=== PATIENT | female | born 2000 | race Caucasian/White ===

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

== ENCOUNTER 2021-08-04 12:12 | Emergency (ER) | payer OTHER ==
--- NOTE | 2021-08-04 12:49 | ED ---
Abdominal Pain HPI - General Source: patient, family, RN notes reviewed Mode of arrival: ambulatory Limitations: no limitations - History of Present Illness MD Complaint: other (pelvic pain) Onset/Timin -: days(s) Location: LLQ, RLQ, suprapubic Quality: cramping <Georgette Dominguez - Last Filed: 08/04/21 16:28> <Eva Black - Last Filed: 08/05/21 21:55> - General Chief Complaint: Abdominal Pain Stated Complaint: Abd pain Time Seen by Provider: 08/04/21 12:20 - History of Present Illness Initial Comments: This is a 20-year-old female who presents to the emergency department for bilateral lower quadrant/pelvic pain. States that she is 2 days late on her period. The pain feels similar to a period cramp. Denies any fevers/chills, nausea, vomiting, or change in bowel habits. Denies being sexually active or having any concern for or sexually transmitted infections. She has not taken anything for the pain at this time. The pain does not radiate and she has not found anything to make the pain better or worse. (Georgette Dominguez) - Related Data Previous Rx's Medication Instructions Recorded Diclofenac Sodium 50 mg PO BID PRN #20 tab 08/04/21 Allergies Allergy/AdvReac Type Severity Reaction Status Date / Time No Known Allergies Allergy Verified 08/04/21 12:13 Review of Systems ROS Other: All systems not noted in ROS Statement are negative. Constitutional: Denies: fever, chills ENT: Denies: ear pain, throat pain Respiratory: Denies: cough, dyspnea Cardiovascular: Denies: chest pain, palpitations Gastrointestinal: Reports: abdominal pain. Denies: nausea, vomiting, diarrhea, constipation Genitourinary: Denies: urgency, dysuria, hematuria Skin: Denies: rash Neurological: Denies: headache <Georgette Dominguez - Last Filed: 08/04/21 16:28> ROS Other: All systems not noted in ROS Statement are negative. <Eva Black - Last Filed: 08/05/21 21:55> ROS Statement: Those systems with pertinent positive or pertinent negative responses have been documented in the HPI. Past Medical History Past Medical History: No Reported History History of Any Multi-Drug Resistant Organisms: None Reported Past Surgical History: No Surgical Hx Reported Past Psychological History: No Psychological Hx Reported Smoking Status: Never smoker Past Alcohol Use History: None Reported Past Drug Use History: None Reported <Georgette Dominguez - Last Filed: 08/04/21 16:28> General Exam Limitations: no limitations General appearance: alert, in no apparent distress Head exam: Present: atraumatic, normocephalic, normal inspection Respiratory exam: Present: normal lung sounds bilaterally. Absent: respiratory distress, wheezes, rales, rhonchi, stridor Cardiovascular Exam: Present: regular rate, normal rhythm, normal heart sounds. Absent: systolic murmur, diastolic murmur, rubs, gallop, clicks GI/Abdominal exam: Present: soft, tenderness (bilateral lower quadrants), normal bowel sounds. Absent: distended, guarding, rebound, rigid Back exam: Absent: CVA tenderness (R), CVA tenderness (L) Neurological exam: Present: alert, oriented X3, CN II-XII intact Psychiatric exam: Present: normal affect, normal mood Skin exam: Present: warm, dry, intact, normal color. Absent: rash <Georgette Dominguez - Last Filed: 08/04/21 16:28> Course Vital Signs 08/04/21 08/04/21 08/04/21 12:13 14:57 16:00 Temperature 98.2 F 98.2 F 98.0 F Pulse Rate 62 52 L 58 L Respiratory 18 18 20 Rate Blood Pressure 111/74 109/66 112/67 O2 Sat by Pulse 99 100 98 Oximetry Medical Decision Making - Lab Data Result diagrams: 08/04/21 13:09 08/04/21 13:09 - Radiology Data Radiology results: report reviewed, image reviewed <Georgette Dominguez - Last Filed: 08/04/21 16:28> - Lab Data Result diagrams: 08/04/21 13:09 08/04/21 13:09 <Eva Black - Last Filed: 08/05/21 21:55> - Medical Decision Making This is a 20-year-old female who presents to the emergency department for bilateral lower quadrant pain. Lab work was unremarkable and revealed no signs of infection. Urinalysis was negative as was patient's urine hCG. Pelvic ultrasound did not identify any abnormalities. Patient given IM Toradol with good relief. Symptoms likely related to premenstrual cramping or other etiology associated with her menses. Prescription for diclofenac sent to her pharmacy, advised that she avoid taking this with other anti-inflammatories. She can however take this with Tylenol. Also advised a hot pack for further relief. Return precautions reviewed in depth, the patient is instructed to return to the emergency department if symptoms worsen or do not improve. Patient verbalized understanding. This case was discussed in detail with the attending ED physician. Presentation, findings, and treatment plan discussed in detail as well. (Georgette Dominguez) I was available for consultation in the emergency department. The history and physical exam were done by the midlevel provider. I was consulted for this patients care. I reviewed the case with the midlevel provider and based on their presentation of the patient, I agree with the assessment, medical decision making and plan of care as documented. Chart was dictated using [employer] dictation software. Attempts were made to correct any dictation errors however some typographical errors may persist. (Eva Black) - Lab Data Lab Results 08/04/21 08/04/21 08/04/21 Range/Units 12:55 12:55 13:09 WBC 5.0 (4.0-11.0) k/uL RBC 4.70 (3.80-5.40) m/uL Hgb 14.8 (11.4-16.0) gm/dL Hct 44.0 (34.0-46.0) % MCV 93.6 (80.0-100.0) fL MCH 31.4 (25.0-35.0) pg MCHC 33.5 (31.0-37.0) g/dL RDW 13.7 (11.5-15.5) % Plt Count 279 (150-450) k/uL MPV 7.8 Neutrophils % 47 % Lymphocytes % 44 % Monocytes % 5 % Eosinophils % 2 % Basophils % 1 % Neutrophils # 2.4 (1.3-7.7) k/uL Lymphocytes # 2.2 (1.0-4.8) k/uL Monocytes # 0.2 (0-1.0) k/uL Eosinophils # 0.1 (0-0.7) k/uL Basophils # 0.0 (0-0.2) k/uL Sodium (137-145) mmol/L Potassium (3.5-5.1) mmol/L Chloride (98-107) mmol/L Carbon Dioxide (22-30) mmol/L Anion Gap mmol/L BUN (7-17) mg/dL Creatinine (0.52-1.04) mg/dL Est GFR (CKD-EPI)AfAm (>60 ml/min/1.73 sqM) Est GFR (CKD-EPI)NonAf (>60 ml/min/1.73 sqM) Glucose (74-99) mg/dL Calcium (8.4-10.2) mg/dL Total Bilirubin (0.2-1.3) mg/dL AST (14-36) U/L ALT (4-34) U/L Alkaline Phosphatase (38-126) U/L Total Protein (6.3-8.2) g/dL Albumin (3.5-5.0) g/dL Urine Color Light Yellow Urine Appearance Clear (Clear) Urine pH 6.5 (5.0-8.0) Ur Specific [place] 1.004 (1.001-1.035) Urine Protein Negative (Negative) Urine Glucose (UA) Negative (Negative) Urine Ketones Negative (Negative) Urine Blood Negative (Negative) Urine Nitrite Negative (Negative) Urine Bilirubin Negative (Negative) Urine Urobilinogen <2.0 (<2.0) mg/dL Ur Leukocyte Esterase Negative (Negative) Urine HCG, Qual Not Detected (Not Detectd) 08/04/21 Range/Units 13:09 WBC (4.0-11.0) k/uL RBC (3.80-5.40) m/uL Hgb (11.4-16.0) gm/dL Hct (34.0-46.0) % MCV (80.0-100.0) fL MCH (25.0-35.0) pg MCHC (31.0-37.0) g/dL RDW (11.5-15.5) % Plt Count (150-450) k/uL MPV Neutrophils % % Lymphocytes % % Monocytes % % Eosinophils % % Basophils % % Neutrophils # (1.3-7.7) k/uL Lymphocytes # (1.0-4.8) k/uL Monocytes # (0-1.0) k/uL Eosinophils # (0-0.7) k/uL Basophils # (0-0.2) k/uL Sodium 136 L (137-145) mmol/L Potassium 3.7 (3.5-5.1) mmol/L Chloride 104 (98-107) mmol/L Carbon Dioxide 22 (22-30) mmol/L Anion Gap 10 mmol/L BUN 6 L (7-17) mg/dL Creatinine 0.48 L (0.52-1.04) mg/dL Est GFR (CKD-EPI)AfAm >90 (>60 ml/min/1.73 sqM) Est GFR (CKD-EPI)NonAf >90 (>60 ml/min/1.73 sqM) Glucose 82 (74-99) mg/dL Calcium 9.5 (8.4-10.2) mg/dL Total Bilirubin 0.9 (0.2-1.3) mg/dL AST 22 (14-36) U/L ALT 10 (4-34) U/L Alkaline Phosphatase 48 (38-126) U/L Total Protein 8.2 (6.3-8.2) g/dL Albumin 5.1 H (3.5-5.0) g/dL Urine Color Urine Appearance (Clear) Urine pH (5.0-8.0) Ur Specific [place] (1.001-1.035) Urine Protein (Negative) Urine Glucose (UA) (Negative) Urine Ketones (Negative) Urine Blood (Negative) Urine Nitrite (Negative) Urine Bilirubin (Negative) Urine Urobilinogen (<2.0) mg/dL Ur Leukocyte Esterase (Negative) Urine HCG, Qual (Not Detectd) Disposition Is patient prescribed a controlled substance at d/c from ED?: No <Georgette Dominguez - Last Filed: 08/04/21 16:28> <Eva Black - Last Filed: 08/05/21 21:55> Clinical Impression: Bilateral lower abdominal cramping Disposition: HOME SELF-CARE Instructions (If sedation given, give patient instructions): Abdominal Pain (ED) Additional Instructions: Return to the emergency department if your symptoms worsen, including but not limited to, worsening pain, fever/chills, or the development of nausea/vomiting. Prescription for diclofenac sent to the pharmacy. Do not take this with any other anti-inflammatory medications, such as ibuprofen. You can however take this with Tylenol. Follow-up with your primary care provider in 1 to 2 days. Prescriptions: Diclofenac Sodium 50 mg PO BID PRN #20 tab PRN Reason: Pain Referrals: Lauren Tavera MD [Primary Care Provider] - 1-2 days
[2021-08-04 13:03] LABS: Appearance,Urine Clear (Clear); Bilirubin,Urine Negative (Negative); Blood,Urine Negative (Negative); Color,Urine Light Yellow; Glucose,Urine (UA) Negative (Negative); Ketones,Urine Negative (Negative); Leukocyte Esterase,Urine Negative (Negative); Nitrite,Urine Negative (Negative); PH, Urine 6.5 (5.0-8.0); Protein,Urine Negative (Negative); Specific Gravity,Urine 1.004 (1.001-1.035); Urobilinogen,Urine <2.0 mg/dL (<2.0)
[2021-08-04 13:30] LABS: ALT 10 U/L (4-34); AST 22 U/L (14-36); African American GFR (CKD) >90 (>60 ml/min/1.73 sqM); Albumin 5.1 g/dL (3.5-5.0); Alkaline Phosphatase 48 U/L (38-126); Anion Gap 10 mmol/L; Blood Urea Nitrogen 6 mg/dL (7-17); Calcium 9.5 mg/dL (8.4-10.2); Carbon Dioxide 22 mmol/L (22-30); Chloride 104 mmol/L (98-107); Glucose 82 mg/dL (74-99); Non-African American GFR(CKD) >90 (>60 ml/min/1.73 sqM); Potassium 3.7 mmol/L (3.5-5.1); Sodium 136 mmol/L (137-145); Total Bilirubin 0.9 mg/dL (0.2-1.3); Total Protein 8.2 g/dL (6.3-8.2)
[2021-08-04 14:01] LABS: Basophils % (A) 1 %; Eosinophils # (A) 0.1 k/uL (0-0.7); Eosinophils % (A) 2 %; HGB 14.8 gm/dL (11.4-16.0); Lymphocytes # (A) 2.2 k/uL (1.0-4.8); Lymphocytes % (A) 44 %; MCH 31.4 pg (25.0-35.0); MCHC 33.5 g/dL (31.0-37.0); MCV 93.6 fL (80.0-100.0); Mean Platelet Volume 7.8; Monocytes # (A) 0.2 k/uL (0-1.0); Monocytes % (A) 5 %; Neutrophils # (A) 2.4 k/uL (1.3-7.7); Neutrophils % (A) 47 %; Platelet Count 279 k/uL (150-450); RDW 13.7 % (11.5-15.5)
--- NOTE | 2021-08-04 14:04 | US ---
EXAMINATION TYPE: US pelvic complete DATE OF EXAM: 08/04/2021 COMPARISON: NONE CLINICAL HISTORY: Lower quadrant/pelvic pain. Pelvic pain TECHNIQUE: . Transabdominal sonographic images of the pelvis were acquired. Date of LMP: 07/06/2021 EXAM MEASUREMENTS: Uterus: 6.0 x 3.3 x 3.9 cm Endometrial Stripe: 0.8 cm Right Ovary: 2.2 x 1.5 x 1.7 cm Left Ovary: 2.5 x 2.0 x 1.9 cm 1. Uterus: anteverted 2. Endometrium: wnl 3. Right Ovary: wnl 4. Left Ovary: wnl Spectral, color and waveform doppler imaging shows good arterial flow within the ovaries, good veno us flow within the right ovary, unable to obtain venous flow within the left ovary. 5. Bilateral Adnexa: wnl 6. Posterior cul-de-sac: wnl IMPRESSION: 1. No acute ultrasound abnormality of the pelvis
[2021-08-04] MEDS ORDERED: KETOROLAC 15 MG/ML 1 ML VIAL IVP STA (14:23)
[2021-08-04 16:00] VITALS: BP 112/67; PULSE 58; RESP 20; TEMP 98
== END 2021-08-04 15:59 | disposition home or self-care (01) ==
LOC: EC 12:12
DX: R10.31 Right lower quadrant pain (principal); R10.32 Left lower quadrant pain
CPT/HCPCS: 99284; 96374; 36415; 80053; 85025; 81003; 81025; 76856; J1885

== ENCOUNTER 2022-11-04 21:04 | Emergency (ER) | payer OTHER ==
--- NOTE | 2022-11-04 21:30 | XR ---
EXAMINATION TYPE: XR chest 2V DATE OF EXAM: 11/04/2022 COMPARISON: 11/20/2019 HISTORY: Chest pain TECHNIQUE: Frontal and lateral views of the chest are obtained. FINDINGS: There is no focal air space opacity. No evidence for pneumothorax. No pleural effusion. The cardiac silhouette size is within normal limits. The osseous structures are grossly intact. IMPRESSION: 1. No acute cardiopulmonary process.
[2022-11-04] MEDS ORDERED: methylPREDNISolone SOD SUCCI 125 MG/2 ML VIAL IM ONE (21:47)
[2022-11-04] MEDS ORDERED: IPRATROPIUM-ALBUTEROL 3 ML NEB INHALATION STA (21:47)
[2022-11-04 22:50] VITALS: PULSE 76
--- NOTE | 2022-11-04 22:54 | ED ---
General Adult HPI - General Chief complaint: Shortness of Breath Stated complaint: sob Time Seen by Provider: 11/04/22 21:38 Source: patient Mode of arrival: ambulatory Limitations: no limitations - History of Present Illness Initial comments: Patient is 22-year-old female presents to emergency department for shortness of breath. It started yesterday when patient was outside. Patient reports mild shortness of breath and dry cough. States she has history of COPD she did 2 albuterol nebulizer treatments with little relief. She states her chest is t ight but not painful. No leg pain or swelling. She denies fever, chills, nausea, vomiting. Patient is a non smoker. - Related Data Previous Rx's Medication Instructions Recorded Diclofenac Sodium 50 mg PO BID PRN #20 tab 08/04/21 predniSONE 50 mg PO DAILY #5 tab 11/04/22 Allergies Allergy/AdvReac Type Severity Reaction Status Date / Time No Known Allergies Allergy Verified 08/04/21 12:13 Review of Systems ROS Statement: Those systems with pertinent positive or pertinent negative responses have been documented in the HPI. ROS Other: All systems not noted in ROS Statement are negative. Past Medical History Past Medical History: COPD History of Any Multi-Drug Resistant Organisms: None Reported Past Surgical History: No Surgical Hx Reported Past Psychological History: No Psychological Hx Reported Smoking Status: Vaper Past Alcohol Use History: None Reported Past Drug Use History: None Reported General Exam Limitations: no limitations General appearance: alert, in no apparent distress Head exam: Present: atraumatic, normocephalic, normal inspection ENT exam: Present: normal oropharynx Neck exam: Present: normal inspection, full ROM. Absent: lymphadenopathy Respiratory exam: Present: normal lung sounds bilaterally, wheezes (Minimal wheezing upper lung finch). Absent: respiratory distress, rales, rhonchi, stridor, chest wall tenderness, accessory muscle use, decreased breath sounds, prolonged expiratory Cardiovascular Exam: Present: regular rate, normal rhythm, normal heart sounds. Absent: systolic murmur, diastolic murmur, rubs, gallop, clicks Neurological exam: Present: alert, oriented X3, CN II-XII intact Psychiatric exam: Present: normal affect, normal mood Skin exam: Present: warm, dry, intact, normal color. Absent: rash Course Vital Signs 11/04/22 11/04/22 11/04/22 21:15 22:21 22:37 Temperature 98.4 F Pulse Rate 73 72 Respiratory 20 18 Rate Blood Pressure 117/74 O2 Sat by Pulse 99 Oximetry 11/04/22 11/04/22 22:49 23:37 Temperature 98.0 F Pulse Rate 76 76 Respiratory 20 Rate Blood Pressure 116/72 O2 Sat by Pulse 93 L Oximetry Medical Decision Making - Medical Decision Making Was pt. sent in by a medical professional or institution (, PA, SPORTS MEDICINE MASSEUR, urgent care, hospital, or [facility]...) When possible be specific @ -No Did you speak to anyone other than the patient for history (EMS, parent, family, police, friend...)? What history was obtained from this source @ -No Did you review nursing and triage notes (agree or disagree)? Why? @ -I reviewed and agree with nursing and triage notes Were old charts reviewed (outside hosp., previous admission, EMS record, old EKG, old radiological studies, urgent care reports/EKG's, [facility] records)? Report findings @ -No old charts were reviewed Differential Diagnosis (chest pain, altered mental status, abdominal pain women, abdominal pain men, vaginal bleeding, weakness, fever, dyspnea, syncope, headache, dizziness, GI bleed, back pain, seizure, CVA, palpatations, mental health)? @ Differential Dyspnea: Coronary syndrome, arrhythmia, tamponade, asthma, COPD, pulmonary embolism, pneumonia, pneumothorax, pulmonary effusion, anaphylaxis, diabetic ketoacidosis, flailed chest, pulmonary contusion, diaphragmatic rupture, anemia, neurom uscular, this is not meant to be an all-inclusive list. EKG interpreted by me (3pts min.). @ -None X-rays interpreted by me (1pt min.). @ -No acute cardiopulmonary process CT interpreted by me (1pt min.). @ -None done U/S interpreted by me (1pt. min.). @ -None done What testing was considered but not performed or refused? (CT, X-rays, U/S, labs)? Why? @ -None What meds were considered but not given or refused? Why? @ -None Did you discuss the management of the patient with other professionals (professionals i.e. , PA, SPORTS MEDICINE MASSEUR, lab, RT, psych nurse, social work administrator, meal room hand, teacher, tourist information officer, catalytic case operator)? Give summary @ -No Was smoking cessation discussed for >3mins.? @ -No Was critical care preformed (if so, how long)? @ -No Were there social determinants of health that impacted care today? How? (Homelessness, low income, unemployed, alcoholism, drug addiction, transportation, low edu. Level, literacy, decrease access to med. care, assisted, rehab)? @ -No Was there de-escalation of care discussed even if they declined (Discuss DNR or withdrawal of care, Hospice)? DNR status @ -No What co-morbidities impacted this encounter? (DM, HTN, Smoking, COPD, CAD, Cancer, CVA, ARF, Chemo, Hep., AIDS, mental health diagnosis, sleep apnea, morbid obesity)? @ -None Was patient admitted / discharged? Hospital course, mention meds given and route, prescriptions, significant lab abnormalities, going to OR and other pertinent info. @ -Patient presented with shortness of breath. She is well-appearing resting comfortably no evidence respiratory distress. No hypoxia. There is minimal wheezing of the upper lung finch. Chest x-ray interpreted by myself no acute cardiopulmonary process. Patient given steroids and DuoNeb treatment with improvement. Patient is eager to go home her lung sounds have improved. She will be discharged symptomatic management. She is discharged in stable condition. Undiagnosed new problem with uncertain prognosis? @ -No Drug Therapy requiring intensive monitoring for toxicity (Heparin, Nitro, Insulin, Cardizem)? @ -No Were any procedures done? @ -No Diagnosis/symptom? @ -dyspnea Acute, or Chronic, or Acute on Chronic? @ -Acute Uncomplicated (without systemic symptoms) or Complicated (systemic symptoms)? @ -Uncomplicated Side effects of treatment? @ -No Exacerbation, Progression, or Severe Exacerbation? @ -No Poses a threat to life or bodily function? How? (Chest pain, [place], [place], pneumonia, PE, COPD, DKA, ARF, appy, cholecystitis, CVA, Diverticulitis, Homicidal, Suicidal, threat to staff... and all critical care pts) @ -No Dr. Roper is my attending - Lab Data Lab Results 11/04/22 Range/Units 21:52 Influenza Type A (PCR) Not Detected (Not Detectd) Influenza Type B (PCR) Not Detected (Not Detectd) RSV (PCR) Not Detected (Not Detectd) SARS-CoV-2 (PCR) Not Detected (Not Detectd) Disposition Clinical Impression: Dyspnea Disposition: HOME SELF-CARE Instructions (If sedation given, give patient instructions): Asthma (ED) Additional Instructions: Take medication as directed. Continue breathing treatments. Please follow-up with your primary care provider in 1-2 days. Return to the emergency department if you experience new, concerning, or worsening symptoms. Prescriptions: predniSONE 50 mg PO DAILY #5 tab Is patient prescribed a controlled substance at d/c from ED?: No Referrals: Lucho Mendez MD [Primary Care Provider] - 1-2 days
[2022-11-04 23:38] VITALS: BP 116/72; RESP 20; TEMP 98
== END 2022-11-04 23:38 | disposition home or self-care (01) ==
LOC: EC 21:04
DX: R06.00 Dyspnea, unspecified (principal); J44.9 Chronic obstructive pulmonary disease, unspecified; F17.290 Nicotine dependence, other tobacco product, uncomplicated; Z20.822 Contact with and (suspected) exposure to COVID-19
CPT/HCPCS: 87636; 71046; 99285; 96372; J2930

== ENCOUNTER 2022-11-22 08:16 | Emergency (ER) | payer OTHER ==
--- NOTE | 2022-11-22 08:39 | ED ---
General Adult HPI - General Chief complaint: Abdominal Pain Stated complaint: Abd Pain, 6weeks Time Seen by Provider: 11/22/22 08:18 Source: patient Mode of arrival: ambulatory Limitations: no limitations - History of Present Illness Initial comments: Dictation was produced using [employer] dictation software. please excuse any grammatical, word or spelling errors. Chief Complaint: 22-year-old female presents with vaginal spotting. She is allegedly 6 weeks History of Present Illness: Patient 22-year-old female she is accompanied by her fianc. She is relatively 6 weeks based on last menstrual cycle. St ates that today she's been having cramping in spotty bleeding. States that her cramping has been ongoing since this morning. Denies having had an the past. Patient has no other complaints. The ROS documented in this emergency department record has been reviewed and confirmed by me. Those systems with pertinent positive or negative responses have been documented in the HPI. All other systems are other negative and/or noncontributory. - Related Data Previous Rx's Medication Instructions Recorded Diclofenac Sodium 50 mg PO BID PRN #20 tab 08/04/21 predniSONE 50 mg PO DAILY #5 tab 11/04/22 Allergies Allergy/AdvReac Type Severity Reaction Status Date / Time No Known Allergies Allergy Verified 11/22/22 08:28 Review of Systems ROS Statement: Those systems with pertinent positive or pertinent negative responses have been documented in the HPI. ROS Other: All systems not noted in ROS Statement are negative. Past Medical History Past Medical History: COPD History of Any Multi-Drug Resistant Organisms: None Reported Past Surgical History: No Surgical Hx Reported Past Psychological History: No Psychological Hx Reported Smoking Status: Vaper Past Alcohol Use History: None Reported Past Drug Use History: None Reported General Exam - General Exam Comments Initial Comments: PHYSICAL EXAM: General Impression: Alert and oriented x3, not in acute distress HEENT: Normocephalic atraumatic, extra-ocular movements intact, pupils equal and reactive to light bilaterally, mucous membranes moist. Cardiovascular: Heart regular rate and rhythm Chest: Able to complete full sentences, no retractions, no tachypnea Abdomen: abdomen soft, positive tenderness to palpation, non-distended, no organomegaly Musculoskeletal: Pulses present and equal in all extremities, no peripheral edema Motor: no focal deficits noted Neurological: CN II-XII grossly intact, no focal motor or sensory deficits noted Skin: Intact with no visualized rashes Psych: Normal affect and mood Limitations: no limitations Course Vital Signs 11/22/22 08:26 Temperature 98.7 F Pulse Rate 82 Respiratory 18 Rate Blood Pressure 102/68 O2 Sat by Pulse 100 Oximetry Medical Decision Making - Medical Decision Making Was pt. sent in by a medical professional or institution (, PA, REEL SYSTEM OPERATOR, urgent care, hospital, or correction...) When possible be specific @ -No Did you speak to anyone other than the patient for history (EMS, parent, family, police, friend...)? What history was obtained from this source @ -No Did you review nursing and triage notes (agree or disagree)? Why? @ -I reviewed and agree with nursing and triage notes Were old charts reviewed (outside hosp., previous admission, EMS record, old EKG, old radiological studies, urgent care reports/EKG's, correction records)? Report findings @ -No old charts were reviewed Differential Diagnosis (chest pain, altered mental status, abdominal pain women, abdominal pain men, vaginal bleeding, musculoskeletal, weakness, fever, dyspnea, syncope, headache, dizziness, GI bleed, back pain, seizure, CVA, palpatations, mental health)? @ -Differential Abdominal Pain Women: Appendicitis, Cholecystitis, diverticulosis, ischemic bowel, pancreatitis, hepatitis, UTI, gastroenteritis, AAA, incarcerated hernia, bowel obstruction, constipation, inflammatory bowel, hepatitis, peptic ulcer disease, splenic infarction, perforated viscus, vulvitis, ovarian torsion, PID, kidney stone, pl acenta abruption, this is not meant to be an all-inclusive list EKG interpreted by me (3pts min.). @ -None done X-rays interpreted by me (1pt min.). @ -None done CT interpreted by me (1pt min.). @ -None done U/S interpreted by me (1pt. min.). @ -Intrauterine What testing was considered but not performed or refused? (CT, X-rays, U/S, labs)? Why? @ -None What meds were considered but not given or refused? Why? @ -None Did you discuss the management of the patient with other professionals (professionals i.e. , JANAE, REEL SYSTEM OPERATOR, lab, RT, psych nurse, foster care social worker, manager education, teacher, facility security officer, field nurse case manager)? Give summary @ -No Was smoking cessation discussed for >3mins.? @ -No Was critical care preformed (if so, how long)? @ -No Were there social determinants of health that impacted care today? How? (Homelessness, low income, unemployed, alcoholism, drug addiction, transportation, low edu. Level, literacy, decrease access to med. care, shelter, rehab)? @ -No Was there de-escalation of care discussed even if they declined (Discuss DNR or withdrawal of care, Hospice)? DNR status @ -No What co-morbidities impacted this encounter? (DM, HTN, Smoking, COPD, CAD, Cancer, CVA, ARF, Chemo, Hep., AIDS, mental health diagnosis, sleep apnea, morbid obesity)? @ -None Was patient admitted / discharged? Hospital course, mention meds given and route, prescriptions, significant lab abnormalities, going to OR and other pertinent info. @ -2-year-old female presents to emergency by with vaginal bleeding and . Vital signs are stable. Laboratory evaluation obtained. CBC metabolic panel unremarkable. Urinalysis negative. HCG Quant is 64,000. Ultrasound shows viable with small subchorionic hemorrhage. Likely implantation bleeding. She is notified of these results. She does not have established follow-up with [facility] yet. She does take vitamins. Return precautions discussed. Patient be discharged Undiagnosed new problem with uncertain prognosis? @ -No Drug Therapy requiring intensive monitoring for toxicity (Heparin, Nitro, Insulin, Cardizem)? @ -No Were any procedures done? @ -No Diagnosis/symptom? Acute, or Chronic, or Acute on Chronic? Uncomplicated (without systemic symptoms) or Complicated (systemic symptoms)? @ -Vaginal bleeding in . Side effects of treatment? @ -No Exacerbation, Progression, or Severe Exacerbation? @ -No Poses a threat to life or bodily function? How? (Chest pain, [place], [place], pneumonia, PE, COPD, DKA, ARF, appy, cholecystitis, CVA, Diverticulitis, Homicidal, Suicidal, threat to staff... and all critical care pts) @ -yes - Lab Data Result diagrams: 11/22/22 08:46 11/22/22 08:46 Lab Results 11/22/22 11/22/22 11/22/22 Range/Units 08:46 08:46 08:46 WBC 7.3 (3.8-10.6) k/uL RBC 4.24 (3.80-5.40) m/uL Hgb 13.0 (11.4-16.0) gm/dL Hct 38.8 (34.0-46.0) % MCV 91.5 (80.0-100.0) fL MCH 30.6 (25.0-35.0) pg MCHC 33.4 (31.0-37.0) g/dL RDW 13.1 (11.5-15.5) % Plt Count 222 (150-450) k/uL MPV 7.6 Neutrophils % 73 % Lymphocytes % 19 % Monocytes % 5 % Eosinophils % 1 % Basophils % 0 % Neutrophils # 5.3 (1.3-7.7) k/uL Lymphocytes # 1.4 (1.0-4.8) k/uL Monocytes # 0.4 (0-1.0) k/uL Eosinophils # 0.1 (0-0.7) k/uL Basophils # 0.0 (0-0.2) k/uL PT 9.8 (9.0-12.0) sec INR 0.9 (<1.2) APTT 22.3 (22.0-30.0) sec Sodium (137-145) mmol/L Potassium (3.5-5.1) mmol/L Chloride (98-107) mmol/L Carbon Dioxide (22-30) mmol/L Anion Gap mmol/L BUN (7-17) mg/dL Creatinine (0.52-1.04) mg/dL Est GFR (CKD-EPI)AfAm (>60 ml/min/1.73 sqM) Est GFR (CKD-EPI)NonAf (>60 ml/min/1.73 sqM) Glucose (74-99) mg/dL Calcium (8.4-10.2) mg/dL HCG, Quant mIU/mL Urine Color Colorless Urine Appearance Clear (Clear) Urine pH 6.5 (5.0-8.0) Ur Specific [place] 1.001 (1.001-1.035) Urine Protein Negative (Negative) Urine Glucose (UA) Negative (Negative) Urine Ketones Negative (Negative) Urine Blood Negative (Negative) Urine Nitrite Negative (Negative) Urine Bilirubin Negative (Negative) Urine Urobilinogen <2.0 (<2.0) mg/dL Ur Leukocyte Esterase Negative (Negative) Blood Type Blood Type Confirm Blood Type Recheck Bld Type Recheck Status Antibody Screen Spec Expiration Date 11/22/22 11/22/22 11/22/22 Range/Units 08:46 08:46 08:47 WBC (3.8-10.6) k/uL RBC (3.80-5.40) m/uL Hgb (11.4-16.0) gm/dL Hct (34.0-46.0) % MCV (80.0-100.0) fL MCH (25.0-35.0) pg MCHC (31.0-37.0) g/dL RDW (11.5-15.5) % Plt Count (150-450) k/uL MPV Neutrophils % % Lymphocytes % % Monocytes % % Eosinophils % % Basophils % % Neutrophils # (1.3-7.7) k/uL Lymphocytes # (1.0-4.8) k/uL Monocytes # (0-1.0) k/uL Eosinophils # (0-0.7) k/uL Basophils # (0-0.2) k/uL PT (9.0-12.0) sec INR (<1.2) APTT (22.0-30.0) sec Sodium 136 L (137-145) mmol/L Potassium 4.4 (3.5-5.1) mmol/L Chloride 105 (98-107) mmol/L Carbon Dioxide 23 (22-30) mmol/L Anion Gap 8 mmol/L BUN 6 L (7-17) mg/dL Creatinine 0.47 L (0.52-1.04) mg/dL Est GFR (CKD-EPI)AfAm >90 (>60 ml/min/1.73 sqM) Est GFR (CKD-EPI)NonAf >90 (>60 ml/min/1.73 sqM) Glucose 87 (74-99) mg/dL Calcium 8.9 (8.4-10.2) mg/dL HCG, Quant 92755.4 mIU/mL Urine Color Urine Appearance (Clear) Urine pH (5.0-8.0) Ur Specific [place] (1.001-1.035) Urine Protein (Negative) Urine Glucose (UA) (Negative) Urine Ketones (Negative) Urine Blood (Negative) Urine Nitrite (Negative) Urine Bilirubin (Negative) Urine Urobilinogen (<2.0) mg/dL Ur Leukocyte Esterase (Negative) Blood Type A Negative Blood Type Confirm A Negative Blood Type Recheck No Previous Record Bld Type Recheck Status CABO Indicated Antibody Screen NEGATIVE Spec Expiration Date 11/25/20222345 Disposition Clinical Impression: Vaginal bleeding during Disposition: HOME SELF-CARE Condition: Good Instructions (If sedation given, give patient instructions): (ED) Is patient prescribed a controlled substance at d/c from ED?: No Referrals: Pranav Mccarty MD [STAFF PHYSICIAN] - 1-2 days Time of Disposition: 11:09
[2022-11-22 08:55] LABS: Appearance,Urine Clear (Clear); Basophils % (A) 0 %; Bilirubin,Urine Negative (Negative); Blood,Urine Negative (Negative); Color,Urine Colorless; Eosinophils # (A) 0.1 k/uL (0-0.7); Eosinophils % (A) 1 %; Glucose,Urine (UA) Negative (Negative); HCT 38.8 % (34.0-46.0); Ketones,Urine Negative (Negative); Leukocyte Esterase,Urine Negative (Negative); Lymphocytes # (A) 1.4 k/uL (1.0-4.8); Lymphocytes % (A) 19 %; MCH 30.6 pg (25.0-35.0); MCHC 33.4 g/dL (31.0-37.0); MCV 91.5 fL (80.0-100.0); Mean Platelet Volume 7.6; Monocytes # (A) 0.4 k/uL (0-1.0); Monocytes % (A) 5 %; Neutrophils # (A) 5.3 k/uL (1.3-7.7); Neutrophils % (A) 73 %; Nitrite,Urine Negative (Negative); PH, Urine 6.5 (5.0-8.0); Platelet Count 222 k/uL (150-450); Protein,Urine Negative (Negative); RBC 4.24 m/uL (3.80-5.40); RDW 13.1 % (11.5-15.5); Specific Gravity,Urine 1.001 (1.001-1.035); Urobilinogen,Urine <2.0 mg/dL (<2.0); WBC 7.3 k/uL (3.8-10.6)
[2022-11-22 09:18] LABS: INR 0.9 (<1.2); Partial Thromboplastin Time 22.3 sec (22.0-30.0); Prothrombin Time 9.8 sec (9.0-12.0)
[2022-11-22 09:20] LABS: African American GFR (CKD) >90 (>60 ml/min/1.73 sqM); Anion Gap 8 mmol/L; Blood Urea Nitrogen 6 mg/dL (7-17); Calcium 8.9 mg/dL (8.4-10.2); Carbon Dioxide 23 mmol/L (22-30); Chloride 105 mmol/L (98-107); Glucose 87 mg/dL (74-99); Non-African American GFR(CKD) >90 (>60 ml/min/1.73 sqM); Potassium 4.4 mmol/L (3.5-5.1); Sodium 136 mmol/L (137-145)
--- NOTE | 2022-11-22 10:02 | US ---
EXAMINATION TYPE: Transabdominal DATE OF EXAM: 11/22/2022 9:29 AM COMPARISON: NONE for this CLINICAL INDICATION: Female, 22 years old with history of pelvic pain; Pain. . EXAM PERFORMED: Transvaginal (TV) and Transabdominal (TA) EXAM MEASUREMENTS: GESTATIONAL AGE / DATING Physician Established: Not yet established Dates by LMP: (6 weeks/0 days) EDC: 07/18/2023 Dates by First Scan: This is first scan Dates by Current Scan for: (6 weeks/4 days) EDC: 07/14/2023 MATERNAL ANATOMY Uterus: 8.1 x 5.0 x 4.6 cm Right Ovary: 3.6 x 1.4 x 1.4 cm Left Ovary: Enlarged- 4.6 x 3.4 3.1 cm. Area of mixed echogenicity with internal septations seen: 2.5 x 2.3 x 2.2 cm could represent corpus luteum versus sequela of prior hemorrhagic cyst. Arterial and venous waveforms seen within enlarged ovary. Post CDS / Adnexa: Fluid seen in CDS Presence of free fluid: Fluid seen in CDS Presence of corpus luteal cyst: Possible in left ovary versus other etiology. Presence of subchorionic bleed: Complex area seen inferior to gestational sac: 1.0 x 1.1 x 0.4 cm. GESTATION / SURVEY CRL: 0.74 cm. (6 weeks/4 days) Yolk Sac (normal less than 6mm): 2.8 mm Heart Rate: 122 bpm Rhythm: Normal IUP: Viable IUP Date of LMP: 10/11/2022 Beta HcG (if available): Not available IMPRESSION: 1. Single live intrauterine gestation with ultrasound age 6 weeks 4 days. 2. Small subchorionic hemorrhage.
[2022-11-22 10:11] LABS: HCG,Quantitative Serum 64204.4 mIU/mL
[2022-11-22] MEDS ORDERED: Rhogam IMMUNE GLOBULIN 1,500 UNIT/1 ML IM ONE (11:03)
[2022-11-22 11:52] VITALS: BP 107/65; PULSE 63; RESP 16; TEMP 98.8
== END 2022-11-22 11:48 | disposition home or self-care (01) ==
LOC: EC 08:16
DX: O20.8 Other hemorrhage in early pregnancy (principal); O99.511 Diseases of the respiratory system complicating pregnancy, first trimester; J44.9 Chronic obstructive pulmonary disease, unspecified; O99.331 Smoking (tobacco) complicating pregnancy, first trimester; F17.290 Nicotine dependence, other tobacco product, uncomplicated; Z3A.01 Less than 8 weeks gestation of pregnancy
CPT/HCPCS: 36415; 86900; 86901; 80048; 85025; 85610; 85730; 86850; 81003; 84702; 76801; 76817; 99284; 96372; J2790

== ENCOUNTER 2022-12-19 09:21 | Emergency (ER) | payer OTHER ==
[2022-12-19 09:25] VITALS: RESP 18; TEMP 98.1
[2022-12-19 10:27] LABS: Basophils % (A) 1 %; Eosinophils # (A) 0.2 k/uL (0-0.7); Eosinophils % (A) 3 %; HCT 33.9 % (34.0-46.0); HGB 12.1 gm/dL (11.4-16.0); Lymphocytes # (A) 1.4 k/uL (1.0-4.8); Lymphocytes % (A) 27 %; MCH 31.8 pg (25.0-35.0); MCHC 35.8 g/dL (31.0-37.0); MCV 88.9 fL (80.0-100.0); Mean Platelet Volume 7.3; Monocytes # (A) 0.2 k/uL (0-1.0); Monocytes % (A) 4 %; Neutrophils # (A) 3.4 k/uL (1.3-7.7); Neutrophils % (A) 64 %; Platelet Count 203 k/uL (150-450); RBC 3.81 m/uL (3.80-5.40); RDW 13.1 % (11.5-15.5); WBC 5.4 k/uL (3.8-10.6)
[2022-12-19 10:42] LABS: Amorphous Sediment,Urine Moderate /hpf; Appearance,Urine Turbid (Clear); Bilirubin,Urine Negative (Negative); Blood,Urine Negative (Negative); Color,Urine Light Yellow; Glucose,Urine (UA) Negative (Negative); Ketones,Urine Negative (Negative); Leukocyte Esterase,Urine Negative (Negative); Nitrite,Urine Negative (Negative); Protein,Urine Negative (Negative); RBC,Urine 1 /hpf (0-5); Specific Gravity,Urine 1.012 (1.001-1.035); Squamous Epithelial Cell,Urine 1 /hpf (0-4); Urobilinogen,Urine <2.0 mg/dL (<2.0); WBC,Urine 4 /hpf (0-5)
[2022-12-19 10:43] LABS: ALT 10 U/L (4-34); AST 19 U/L (14-36); African American GFR (CKD) >90 (>60 ml/min/1.73 sqM); Alkaline Phosphatase 37 U/L (38-126); Anion Gap 9 mmol/L; Blood Urea Nitrogen 5 mg/dL (7-17); Calcium 8.9 mg/dL (8.4-10.2); Carbon Dioxide 21 mmol/L (22-30); Chloride 105 mmol/L (98-107); Glucose 81 mg/dL (74-99); Non-African American GFR(CKD) >90 (>60 ml/min/1.73 sqM); Potassium 4.5 mmol/L (3.5-5.1); Sodium 135 mmol/L (137-145); Total Bilirubin 0.5 mg/dL (0.2-1.3); Total Protein 6.2 g/dL (6.3-8.2)
--- NOTE | 2022-12-19 11:01 | US ---
EXAMINATION TYPE: Transabdominal DATE OF EXAM: 12/19/2022 10:39 AM COMPARISON: NONE CLINICAL INDICATION: Female, 22 years old with history of pain; cramping today, EXAM PERFORMED: OBTA EXAM MEASUREMENTS: GESTATIONAL AGE / DATING Physician Established: ( 9 weeks/6 days) EDC: 07/18/2023 Dates by LMP: (9 weeks/6 days) EDC: 07/18/2023 Dates by First Scan: (10 weeks/3 days) EDC: 07/14/2023 Dates by Current Scan for: (10 weeks/6 days) EDC: 07/11/2023 MATERNAL ANATOMY Uterus: 9.3 x 6.7 x 7.2cm Right Ovary: not seen due to bowel gas and enlarging UT Left Ovary: 4.3 x 3.4 x 2.8cm Post CDS / Adnexa: wnl Presence of free fluid: no Presence of corpus luteal cyst: yes, left ovary = 2.0 x 2.1 x 1.8cm Presence of subchorionic bleed: no GESTATION / SURVEY CRL: 3.9cm (10 weeks/6 days) MSD: wnl Yolk Sac (normal less than 6mm): 0.4cm Heart Rate: 167 bpm Rhythm: Normal IUP: Viable IUP Nuchal Translucency 10-14wks (normal less than 3mm): 0.2cm Age Appropriate Anatomy Cord Insertion: Visualized Limbs: Visualized Calvarium: Visualized Date of LMP: 10/11/2022 Beta HcG (if available): pending IMPRESSION: Single viable intrauterine noted.
--- NOTE | 2022-12-19 11:29 | ED ---
Abdominal Pain HPI - General Chief Complaint: Abdominal Pain Stated Complaint: 9 wks preg, bleeding/cramping Time Seen by Provider: 12/19/22 09:30 Source: patient Mode of arrival: ambulatory Limitations: no limitations - History of Present Illness Initial Comments: 22-year-old female who is approximately 9 weeks who presents to the emergency department reporting lower abdominal cramping and vaginal bleeding. Patient was seen in the emergency department on November 22 for similar complaints. She was diagnosed with subchorionic hemorrhage. Follows with Dr. Turcios. States that her bleeding had stopped. This morning the patient awoke and had lower abdominal cramping with some bleeding. States it's only visible when she wipes. Admits bright pink in color. Denies dysuria, hematuria or difficulty voiding. No diarrhea, constitutional, black or bloody stools. No fevers. Did not take anything for the pain before coming in. No other alleviating, precipitating or modifying factors - Related Data Previous Rx's Medication Instructions Recorded Diclofenac Sodium 50 mg PO BID PRN #20 tab 08/04/21 predniSONE 50 mg PO DAILY #5 tab 11/04/22 Allergies Allergy/AdvReac Type Severity Reaction Status Date / Time No Known Allergies Allergy Verified 12/19/22 09:25 Review of Systems ROS Statement: Those systems with pertinent positive or pertinent negative responses have been documented in the HPI. ROS Other: All systems not noted in ROS Statement are negative. Past Medical History Past Medical History: Asthma History of Any Multi-Drug Resistant Organisms: None Reported Past Surgical History: No Surgical Hx Reported Past Psychological History: Anxiety Smoking Status: Vaper Past Alcohol Use History: None Reported Past Drug Use History: None Reported General Exam Limitations: no limitations General appearance: alert, in no apparent distress Head exam: Present: atraumatic, normocephalic, normal inspection Eye exam: Present: normal appearance, PERRL, EOMI. Absent: scleral icterus, conjunctival injection, periorbital swelling ENT exam: Present: normal exam, mucous membranes moist Neck exam: Present: normal inspection. Absent: tenderness, meningismus, lymphadenopathy Respiratory exam: Present: normal lung sounds bilaterally. Absent: respiratory distress, wheezes, rales, rhonchi, stridor Cardiovascular Exam: Present: regular rate, normal rhythm, normal heart sounds. Absent: systolic murmur, diastolic murmur, rubs, gallop, clicks GI/Abdominal exam: Present: soft, normal bowel sounds. Absent: distended, tenderness, guarding, rebound, rigid Extremities exam: Present: normal inspection, full ROM, normal capillary refill. Absent: tenderness, pedal edema, joint swelling, calf tenderness Back exam: Present: normal inspection Neurological exam: Present: alert, oriented X3, CN II-XII intact Psychiatric exam: Present: normal affect, normal mood Skin exam: Present: warm, dry, intact, normal color. Absent: rash Course Vital Signs 12/19/22 12/19/22 09:23 11:50 Temperature 98.1 F Pulse Rate 80 65 Respiratory 18 18 Rate Blood Pressure 101/71 99/66 O2 Sat by Pulse 100 97 Oximetry Medical Decision Making - Medical Decision Making Was pt. sent in by a medical professional or institution (, PA, MORNING NANNY, urgent care, hospital, or care home...) When possible be specific @ -Dr. Turcios's office recommended that the patient come in Did you speak to anyone other than the patient for history (EMS, parent, family, police, friend...)? What history was obtained from this source @ -No Did you review nursing and triage notes (agree or disagree)? Why? @ -I reviewed and agree with nursing and triage notes Were old charts reviewed (outside hosp., previous admission, EMS record, old EKG, old radiological studies, urgent care reports/EKG's, care home records)? Report findings @ -I reviewed the patient's ED visit and ultrasound from November 22 Differential Diagnosis (chest pain, altered mental status, abdominal pain women, abdominal pain men, vaginal bleeding, weakness, fever, dyspnea, syncope, headache, dizziness, GI bleed, back pain, seizure, CVA, palpatations, mental health, musculoskeletal)? @ -Differential Vaginal Bleeding: Spontaneous , threatened , molar , ectopic , bloody show, incompetent cervix, abruptioplacenta, placenta previa, uterine rupture, dysfunctional uterine bleeding, hemorrhage, uterine fibroids, this is not meant to be an all-inclusive list. EKG interpreted by me (3pts min.). @ -Not conducted X-rays interpreted by me (1pt min.). @ -None done CT interpreted by me (1pt min.). @ -None done U/S interpreted by me (1pt. min.). @ -Yes and demonstrates an intrauterine which is viable What testing was considered but not performed or refused? (CT, X-rays, U/S, labs)? Why? @ -None What meds were considered but not given or refused? Why? @ -None Did you discuss the management of the patient with other professionals (professionals i.e. , PA, MORNING NANNY, lab, RT, psych nurse, manager social media, residential electrician, teacher, founder and chief executive officer, caser shoe parts)? Give summary @ -No Was smoking cessation discussed for >3mins.? @ -No Was critical care preformed (if so, how long)? @ -No Were there social determinants of health that impacted care today? How? (Homelessness, low income, unemployed, alcoholism, drug addiction, transportation, low edu. Level, literacy, decrease access to med. care, [facility], rehab)? @ -No Was there de-escalation of care discussed even if they declined (Discuss DNR or withdrawal of care, Hospice)? DNR status @ -No What co-morbidities impacted this encounter? (DM, HTN, Smoking, COPD, CAD, C ancer, CVA, ARF, Chemo, Hep., AIDS, mental health diagnosis, sleep apnea, morbid obesity)? @ -None Was patient admitted / discharged? Hospital course, mention meds given and route, prescriptions, significant lab abnormalities, going to OR and other pertinent info. @ -Upon arrival patient is placed into room 14. Thorough history and physical exam was performed. Ultrasound is performed which demonstrates a viable intrauterine . She did receive Rhogam for her a negative blood type on November 22. At this time the patient will be placed on pelvic rest. Follow up with her LO[facility]. Return to the emergency department should she have any heavier bleeding. She remained hemodynamically stable. Patient was agreeable to plan and she was discharged in stable condition Undiagnosed new problem with uncertain prognosis? @ - Yes Drug Therapy requiring intensive monitoring for toxicity (Heparin, Nitro, Insulin, Cardizem)? @ -No Were any procedures done? @ -No Diagnosis/symptom? @ -Acute vaginal bleeding, first trimester , history of subchorionic hemorrhage Acute, or Chronic, or Acute on Chronic? @ -Acute, recurrent Uncomplicated (without systemic symptoms) or Complicated (systemic symptoms)? @ -Complicated Side effects of treatment? @ -No Exacerbation, Progression, or Severe Exacerbation? @ -No Poses a threat to life or bodily function? How? (Chest pain, [place], [place], pneumonia, PE, COPD, DKA, ARF, appy, cholecystitis, CVA, Diverticulitis, Homicidal, Suicidal, threat to staff... and all critical care pts) @ -No - Lab Data Result diagrams: 12/19/22 10:05 12/19/22 10:05 Lab Results 12/19/22 12/19/22 12/19/22 Range/Units 10:00 10:05 10:05 WBC 5.4 (3.8-10.6) k/uL RBC 3.81 (3.80-5.40) m/uL Hgb 12.1 (11.4-16.0) gm/dL Hct 33.9 L (34.0-46.0) % MCV 88.9 (80.0-100.0) fL MCH 31.8 (25.0-35.0) pg MCHC 35.8 (31.0-37.0) g/dL RDW 13.1 (11.5-15.5) % Plt Count 203 (150-450) k/uL MPV 7.3 Neutrophils % 64 % Lymphocytes % 27 % Monocytes % 4 % Eosinophils % 3 % Basophils % 1 % Neutrophils # 3.4 (1.3-7.7) k/uL Lymphocytes # 1.4 (1.0-4.8) k/uL Monocytes # 0.2 (0-1.0) k/uL Eosinophils # 0.2 (0-0.7) k/uL Basophils # 0.0 (0-0.2) k/uL Sodium (137-145) mmol/L Potassium (3.5-5.1) mmol/L Chloride (98-107) mmol/L Carbon Dioxide (22-30) mmol/L Anion Gap mmol/L BUN (7-17) mg/dL Creatinine (0.52-1.04) mg/dL Est GFR (CKD-EPI)AfAm (>60 ml/min/1.73 sqM) Est GFR (CKD-EPI)NonAf (>60 ml/min/1.73 sqM) Glucose (74-99) mg/dL Calcium (8.4-10.2) mg/dL Total Bilirubin (0.2-1.3) mg/dL AST (14-36) U/L ALT (4-34) U/L Alkaline Phosphatase (38-126) U/L Total Protein (6.3-8.2) g/dL Albumin (3.5-5.0) g/dL HCG, Quant mIU/mL Urine Color Light Yellow Urine Appearance Turbid H (Clear) Urine pH 8.0 (5.0-8.0) Ur Specific [place] 1.012 (1.001-1.035) Urine Protein Negative (Negative) Urine Glucose (UA) Negative (Negative) Urine Ketones Negative (Negative) Urine Blood Negative (Negative) Urine Nitrite Negative (Negative) Urine Bilirubin Negative (Negative) Urine Urobilinogen <2.0 (<2.0) mg/dL Ur Leukocyte Esterase Negative (Negative) Urine RBC 1 (0-5) /hpf Urine WBC 4 (0-5) /hpf Ur Squamous Epith Cells 1 (0-4) /hpf Amorphous Sediment Moderate H (None) /hpf Blood Type A Negative Blood Type Recheck A Neg Bld Type Recheck Status No Antibody Screen POSITIVE Antibody Identification Anti-D Direct Antiglob Test Negative Spec Expiration Date 12/22/2022 - 229912/19/22 Range/Units 10:05 WBC (3.8-10.6) k/uL RBC (3.80-5.40) m/uL Hgb (11.4-16.0) gm/dL Hct (34.0-46.0) % MCV (80.0-100.0) fL MCH (25.0-35.0) pg MCHC (31.0-37.0) g/dL RDW (11.5-15.5) % Plt Count (150-450) k/uL MPV Neutrophils % % Lymphocytes % % Monocytes % % Eosinophils % % Basophils % % Neutrophils # (1.3-7.7) k/uL Lymphocytes # (1.0-4.8) k/uL Monocytes # (0-1.0) k/uL Eosinophils # (0-0.7) k/uL Basophils # (0-0.2) k/uL Sodium 135 L (137-145) mmol/L Potassium 4.5 (3.5-5.1) mmol/L Chloride 105 (98-107) mmol/L Carbon Dioxide 21 L (22-30) mmol/L Anion Gap 9 mmol/L BUN 5 L (7-17) mg/dL Creatinine 0.43 L (0.52-1.04) mg/dL Est GFR (CKD-EPI)AfAm >90 (>60 ml/min/1.73 sqM) Est GFR (CKD-EPI)NonAf >90 (>60 ml/min/1.73 sqM) Glucose 81 (74-99) mg/dL Calcium 8.9 (8.4-10.2) mg/dL Total Bilirubin 0.5 (0.2-1.3) mg/dL AST 19 (14-36) U/L ALT 10 (4-34) U/L Alkaline Phosphatase 37 L (38-126) U/L Total Protein 6.2 L (6.3-8.2) g/dL Albumin 4.0 (3.5-5.0) g/dL HCG, Quant 52740.0 mIU/mL Urine Color Urine Appearance (Clear) Urine pH (5.0-8.0) Ur Specific [place] (1.001-1.035) Urine Protein (Negative) Urine Glucose (UA) (Negative) Urine Ketones (Negative) Urine Blood (Negative) Urine Nitrite (Negative) Urine Bilirubin (Negative) Urine Urobilinogen (<2.0) mg/dL Ur Leukocyte Esterase (Negative) Urine RBC (0-5) /hpf Urine WBC (0-5) /hpf Ur Squamous Epith Cells (0-4) /hpf Amorphous Sediment (None) /hpf Blood Type Blood Type Recheck Bld Type Recheck Status Antibody Screen Antibody Identification Direct Antiglob Test Spec Expiration Date Disposition Clinical Impression: Vaginal bleeding during , Rh negative status during Disposition: HOME SELF-CARE Condition: Stable Instructions (If sedation given, give patient instructions): Non-Threatening First Trimester Vaginal Bleed (ED) Additional Instructions: Please follow-up with Dr. Turcios. Remain on pelvic rest. Return for any new or worsening symptoms Is patient prescribed a controlled substance at d/c from ED?: No Referrals: Lucho Mendez MD [Primary Care Provider] - 1-2 days Marialuisa Turcios DO [Doctor of Osteopathic Medicine] - 1-2 days Time of Disposition: 11:29
[2022-12-19 11:51] VITALS: BP 99/66; PULSE 65
== END 2022-12-19 11:51 | disposition home or self-care (01) ==
LOC: EC 09:21
DX: O20.9 Hemorrhage in early pregnancy, unspecified (principal); Z67.91 Unspecified blood type, Rh negative; O99.511 Diseases of the respiratory system complicating pregnancy, first trimester; J45.909 Unspecified asthma, uncomplicated; O99.331 Smoking (tobacco) complicating pregnancy, first trimester; F17.290 Nicotine dependence, other tobacco product, uncomplicated; Z3A.09 9 weeks gestation of pregnancy
CPT/HCPCS: 36415; 76801; 76813; 80053; 81001; 84702; 85025; 86850; 86870; 86880; 86900; 86901; 99284

== ENCOUNTER → 2023-01-14 | Outpatient (CLI) | payer OTHER ==
--- NOTE | 2023-01-14 16:10 | US ---
EXAMINATION TYPE: Transabdominal DATE OF EXAM: 01/14/2023 2:29 PM COMPARISON: NONE CLINICAL INDICATION: Female, 22 years old with history of O46.91 ANTEPARTUM HEMORRHAGE, UNSPECIFIED, FIRST T; follow up to previous was spotting not now EXAM PERFORMED: Transabdominal (TA) EXAM MEASUREMENTS: GESTATIONAL AGE / DATING Physician Established: (13 weeks/4 days) EDC: 07/18/2023 Dates by LMP: (13 weeks/4 days) EDC: 07/18/2023 Dates by First Scan: (13 weeks/4 days) EDC: 07/18/2023 Dates by Current Scan for: (15 weeks/1 days) EDC: 07/07/2023 MATERNAL ANATOMY Uterus: 13.3 x 8.3 x 10.7 cm Right Ovary: Obscured Left Ovary: 3.9 x 2.9 x 2.9 cm Post CDS / Adnexa: wnl Presence of free fluid: no Presence of corpus luteal cyst: yes left Presence of subchorionic bleed: small area 1.3 x .7 x .7 cm. GESTATION / SURVEY BPD: 2.9 cm 15 weeks / 2 days HC: 11.12 cm 15 weeks / 3 days AC: 9.37 cm 15 weeks / 4 days FL: 1.44 cm 14 weeks / 2 days ESTIMATED WEIGHT IN GRAMS: 110 grams ESTIMATED WEIGHT IN LBS/OZ: 0 lbs. 4 oz. WEIGHT PERCENTAGE BASED ON ESTABLISHED DATES: 98%. This is above the standard range. HC/AC: 1.19 cm Normal FL/AC: 15 % Normal HEART RATE: 143 bpm RHYTHM: Normal IMPRESSION: 1. Single intrauterine gestation estimated at 15 weeks 1 day gestation based on current ultrasound me asurements. Cardiac activity measures 143 bpm. 2. Small subchorionic hemorrhage. 3. Estimated weight based on current measurements within the 98th percentile, above the standar d range.
== END | disposition home or self-care (01) ==
LOC: RADUSWWP 13:57
PROVIDERS: ATTEND Obstetrics & Gynecology
DX: O46.92 Antepartum hemorrhage, unspecified, second trimester (principal); Z3A.15 15 weeks gestation of pregnancy
CPT/HCPCS: 76801

== ENCOUNTER 2023-01-20 22:04 | Emergency (ER) | payer OTHER ==
[2023-01-20 22:09] VITALS: BP 107/69; PULSE 107; RESP 16; TEMP 98
--- NOTE | 2023-01-20 22:10 | ED ---
General Adult HPI <Blaine Wallace - Last Filed: 01/20/23 22:11> - General Source: patient, RN notes reviewed Mode of arrival: ambulatory Limitations: no limitations <Georgette Dominguez - Last Filed: 01/21/23 04:02> - General Chief complaint: Vaginal Bleeding Stated complaint: Vaginal Bleeding, 15 weeks preg Time Seen by Provider: 01/20/23 23:20 - History of Present Illness Initial comments: A0 22-year-old female presenting to the ED with a chief complaint of vaginal bleeding. LMP 10/13/2022. Has already had a transvaginal ultrasound confirming IUP. Today, started to experience vaginal bleeding. No abdominal pain. Follows with Dr. Turcios of [facility] (Blaine Wallace) When I went to evaluate the patient, states that she is 14.5 weeks . This is her first . She had minor spotting when the first started, but otherwise denies any problems thus far. She did receive RhoGAM for the bleeding on November 22. Denies any nausea, vomiting, or abdominal pain. She is not passing any clots with the bleeding. She is also not wearing any pads. She does have a follow-up appointment with Dr. Turcios on 02/11. (Georgette Dominguez) - Related Data Previous Rx's Medication Instructions Recorded Diclofenac Sodium 50 mg PO BID PRN #20 tab 08/04/21 predniSONE 50 mg PO DAILY #5 tab 11/04/22 Allergies Allergy/AdvReac Type Severity Reaction Status Date / Time No Known Allergies Allergy Verified 01/20/23 22:08 Review of Systems ROS Other: All systems not noted in ROS Statement are negative. <Blaine Wallace - Last Filed: 01/20/23 22:11> ROS Other: All systems not noted in ROS Statement are negative. <Georgette Dominguez - Last Filed: 01/21/23 04:02> ROS Statement: Those systems with pertinent positive or pertinent negative responses have been documented in the HPI. Past Medical History Past Medical History: Asthma History of Any Multi-Drug Resistant Organisms: None Reported Past Surgical History: No Surgical Hx Reported Past Psychological History: Anxiety Smoking Status: Vaper Past Alcohol Use History: None Reported Past Drug Use History: None Reported <Blaine Wallace - Last Filed: 01/20/23 22:11> General Exam General appearance: alert Eye exam: Present: normal appearance Neck exam: Present: normal inspection Extremities exam: Present: normal inspection Back exam: Present: normal inspection Neurological exam: Present: alert <Blaine Wallace - Last Filed: 01/20/23 22:11> Limitations: no limitations General appearance: alert, in no apparent distress Head exam: Present: atraumatic, normocephalic, normal inspection Respiratory exam: Present: normal lung sounds bilaterally. Absent: respiratory distress, wheezes, rales, rhonchi, stridor Cardiovascular Exam: Present: regular rate, normal rhythm, normal heart sounds. Absent: systolic murmur, diastolic murmur, rubs, gallop, clicks Neurological exam: Present: alert, oriented X3, CN II-XII intact Psychiatric exam: Present: normal affect, normal mood Skin exam: Present: warm, dry, intact, normal color. Absent: rash <Georgette Dominguez - Last Filed: 01/21/23 04:02> Course Vital Signs 01/20/23 22:05 Temperature 98.0 F Pulse Rate 107 H Respiratory 16 Rate Blood Pressure 107/69 O2 Sat by Pulse 100 Oximetry Medical Decision Making <Blaine Wallace - Last Filed: 01/20/23 22:11> - Lab Data Result diagrams: 01/20/23 22:20 01/20/23 22:20 - Radiology Data Radiology results: report reviewed, image reviewed <Georgette Dominguez - Last Filed: 01/21/23 04:02> - Medical Decision Making Quicknote portion performed. Signed Blaine Wallace PA-C (Blaine Wallace) This is a 22-year-old female who presents to the emergency department for vaginal bleeding in . Was pt. sent in by a medical professional or institution? @ -No Did you speak to anyone other than the patient for history? @ -No Did you review nursing and triage notes? @ -Yes, and I agree, it is accurate with regards to the patient's symptoms. Were old charts reviewed? @ -No Differential Diagnosis? @ -Differential Vaginal Bleeding: Spontaneous , threatened , molar , ectopic , incompetent cervix, placenta previa, uterine rupture, dysfunctional uterine bleeding, hemorrhage, uterine fibroids, malignancy, coagulopathy, PID, cervicitis, adenomyosis, vaginal trauma, this is not meant to be an all- inclusive list. EKG interpreted by me (3pts min.)? @ -Not obtained X-rays interpreted by me (1pt min.)? @ -Not obtained CT interpreted by me (1pt min.)? @ -Not obtained U/S interpreted by me (1pt. min.)? @ -Not interpreted by me What testing was considered but not performed? (CT, X-rays, U/S, labs)? Why? @ -None What meds were considered but not given? Why? @ -None Did you discuss the management of the patient with other professionals? @ -No Did you reconcile home meds? @ -No Was smoking cessation discussed for >3mins.? @ -No Was critical care preformed (if so, how long)? @ -No Were there social determinants of health that impacted care today? How? (Homelessness, low income, unemployed, alcoholism, drug addiction, transportation, low edu. Level, literacy, decrease access to med. care, [facility], rehab)? @ -No Was there de-escalation of care discussed even if they declined? (Discuss DNR or withdrawal of care, Hospice)? @ -No What co-morbidities impacted this encounter? (DM, HTN, Smoking, COPD, CAD, Cancer, CVA, Hep., AIDS, mental health diagnosis, sleep apnea, morbid obesity)? @ - Was patient admitted / discharged? @ -Discharged. Lab work obtained and found to be nonactionable. Urinalysis negative for signs of infection. She is Rh-, but received RhoGAM on 11/22. This is within the 13 week period and a repeat dose is not indicated at this time. Obstetrics ultrasound obtained revealing a single live intrauterine . She is instructed to contact her BED OPERATOR regarding this visit to see if they would like to schedule her for a sooner follow-up appointment. Undiagnosed new problem with uncertain prognosis? @ -None Drug Therapy requiring intensive monitoring for toxicity (Heparin, Nitro, Insulin, Cardizem)? @ -None Were any procedures done? @ -None Diagnosis/symptom? @ -Threatened Acute, or Chronic, or Acute on Chronic? @ -Acute Uncomplicated (without systemic symptoms) or Complicated (systemic symptoms)? @ -Uncomplicated Side effects of treatment? @ -None Exacerbation, Progression, or Severe Exacerbation] @ -Not applicable Poses a threat to life or bodily function? @ -No Return precautions reviewed in depth, the patient is instructed to return to the emergency department with any new, worsening, or concerning symptoms. Patient verbalized understanding. This case was discussed in detail with the attending ED physician, Dr. Simmons. Presentation, findings, and treatment plan discussed in detail as well. (Georgette Dominguez) - Lab Data Lab Results 01/20/23 01/20/23 01/20/23 Range/Units 22:20 22:20 22:20 WBC 7.4 (3.8-10.6) k/uL RBC 3.63 L (3.80-5.40) m/uL Hgb 11.4 (11.4-16.0) gm/dL Hct 33.2 L (34.0-46.0) % MCV 91.4 (80.0-100.0) fL MCH 31.4 (25.0-35.0) pg MCHC 34.4 (31.0-37.0) g/dL RDW 13.5 (11.5-15.5) % Plt Count 280 (150-450) k/uL MPV 7.5 Neutrophils % 61 % Lymphocytes % 28 % Monocytes % 5 % Eosinophils % 4 % Basophils % 0 % Neutrophils # 4.6 (1.3-7.7) k/uL Lymphocytes # 2.1 (1.0-4.8) k/uL Monocytes # 0.4 (0-1.0) k/uL Eosinophils # 0.3 (0-0.7) k/uL Basophils # 0.0 (0-0.2) k/uL Sodium 136 L (137-145) mmol/L Potassium 3.5 (3.5-5.1) mmol/L Chloride 106 (98-107) mmol/L Carbon Dioxide 22 (22-30) mmol/L Anion Gap 8 mmol/L BUN 7 (7-17) mg/dL Creatinine 0.50 L (0.52-1.04) mg/dL Est GFR (CKD-EPI)AfAm >90 (>60 ml/min/1.73 sqM) Est GFR (CKD-EPI)NonAf >90 (>60 ml/min/1.73 sqM) Glucose 71 L (74-99) mg/dL Calcium 9.1 (8.4-10.2) mg/dL Total Bilirubin 0.2 (0.2-1.3) mg/dL AST 17 (14-36) U/L ALT 11 (4-34) U/L Alkaline Phosphatase 38 (38-126) U/L Total Protein 6.3 (6.3-8.2) g/dL Albumin 3.8 (3.5-5.0) g/dL HCG, Quant mIU/mL Urine Color Colorless Urine Appearance Clear (Clear) Urine pH 6.5 (5.0-8.0) Ur Specific [place] 1.010 (1.001-1.035) Urine Protein Negative (Negative) Urine Glucose (UA) Negative (Negative) Urine Ketones Negative (Negative) Urine Blood Small H (Negative) Urine Nitrite Negative (Negative) Urine Bilirubin Negative (Negative) Urine Urobilinogen <2.0 (<2.0) mg/dL Ur Leukocyte Esterase Negative (Negative) Urine RBC 1 (0-5) /hpf Urine WBC 1 (0-5) /hpf Ur Squamous Epith Cells 2 (0-4) /hpf Amorphous Sediment Rare H (None) /hpf Urine Bacteria Occasional H (None) /hpf Urine Mucus Rare H (None) /hpf 01/20/23 Range/Units 22:20 WBC (3.8-10.6) k/uL RBC (3.80-5.40) m/uL Hgb (11.4-16.0) gm/dL Hct (34.0-46.0) % MCV (80.0-100.0) fL MCH (25.0-35.0) pg MCHC (31.0-37.0) g/dL RDW (11.5-15.5) % Plt Count (150-450) k/uL MPV Neutrophils % % Lymphocytes % % Monocytes % % Eosinophils % % Basophils % % Neutrophils # (1.3-7.7) k/uL Lymphocytes # (1.0-4.8) k/uL Monocytes # (0-1.0) k/uL Eosinophils # (0-0.7) k/uL Basophils # (0-0.2) k/uL Sodium (137-145) mmol/L Potassium (3.5-5.1) mmol/L Chloride (98-107) mmol/L Carbon Dioxide (22-30) mmol/L Anion Gap mmol/L BUN (7-17) mg/dL Creatinine (0.52-1.04) mg/dL Est GFR (CKD-EPI)AfAm (>60 ml/min/1.73 sqM) Est GFR (CKD-EPI)NonAf (>60 ml/min/1.73 sqM) Glucose (74-99) mg/dL Calcium (8.4-10.2) mg/dL Total Bilirubin (0.2-1.3) mg/dL AST (14-36) U/L ALT (4-34) U/L Alkaline Phosphatase (38-126) U/L Total Protein (6.3-8.2) g/dL Albumin (3.5-5.0) g/dL HCG, Quant 33737.6 mIU/mL Urine Color Urine Appearance (Clear) Urine pH (5.0-8.0) Ur Specific [place] (1.001-1.035) Urine Protein (Negative) Urine Glucose (UA) (Negative) Urine Ketones (Negative) Urine Blood (Negative) Urine Nitrite (Negative) Urine Bilirubin (Negative) Urine Urobilinogen (<2.0) mg/dL Ur Leukocyte Esterase (Negative) Urine RBC (0-5) /hpf Urine WBC (0-5) /hpf Ur Squamous Epith Cells (0-4) /hpf Amorphous Sediment (None) /hpf Urine Bacteria (None) /hpf Urine Mucus (None) /hpf Disposition <Blaine Wallace - Last Filed: 01/20/23 22:11> Is patient prescribed a controlled substance at d/c from ED?: No <Georgette Dominguez - Last Filed: 01/21/23 04:02> Clinical Impression: Vaginal bleeding during Disposition: HOME SELF-CARE Instructions (If sedation given, give patient instructions): at 15 to 18 Weeks (ED) Additional Instructions: Return to the emergency department with any new, worsening, or concerning symptoms. Contact Dr. Turcios regarding your emergency department visit to see if she would like to see you in the office for a sooner appt. Referrals: Lucho Mendez MD [Primary Care Provider] - 1-2 days Forms: Work/School Release
[2023-01-20 22:31] LABS: Basophils % (A) 0 %; Eosinophils # (A) 0.3 k/uL (0-0.7); Eosinophils % (A) 4 %; HCT 33.2 % (34.0-46.0); HGB 11.4 gm/dL (11.4-16.0); Lymphocytes # (A) 2.1 k/uL (1.0-4.8); Lymphocytes % (A) 28 %; MCH 31.4 pg (25.0-35.0); MCHC 34.4 g/dL (31.0-37.0); MCV 91.4 fL (80.0-100.0); Mean Platelet Volume 7.5; Monocytes # (A) 0.4 k/uL (0-1.0); Monocytes % (A) 5 %; Neutrophils # (A) 4.6 k/uL (1.3-7.7); Neutrophils % (A) 61 %; Platelet Count 280 k/uL (150-450); RBC 3.63 m/uL (3.80-5.40); RDW 13.5 % (11.5-15.5); WBC 7.4 k/uL (3.8-10.6)
[2023-01-20 22:44] LABS: ALT 11 U/L (4-34); AST 17 U/L (14-36); African American GFR (CKD) >90 (>60 ml/min/1.73 sqM); Albumin 3.8 g/dL (3.5-5.0); Alkaline Phosphatase 38 U/L (38-126); Anion Gap 8 mmol/L; Blood Urea Nitrogen 7 mg/dL (7-17); Calcium 9.1 mg/dL (8.4-10.2); Carbon Dioxide 22 mmol/L (22-30); Chloride 106 mmol/L (98-107); Glucose 71 mg/dL (74-99); Non-African American GFR(CKD) >90 (>60 ml/min/1.73 sqM); Potassium 3.5 mmol/L (3.5-5.1); Sodium 136 mmol/L (137-145); Total Bilirubin 0.2 mg/dL (0.2-1.3); Total Protein 6.3 g/dL (6.3-8.2)
[2023-01-20 22:54] LABS: Amorphous Sediment,Urine Rare /hpf; Appearance,Urine Clear (Clear); Bacteria,Urine Occasional /hpf; Bilirubin,Urine Negative (Negative); Blood,Urine Small (Negative); Color,Urine Colorless; Glucose,Urine (UA) Negative (Negative); Ketones,Urine Negative (Negative); Leukocyte Esterase,Urine Negative (Negative); Mucus,Urine Rare /hpf; Nitrite,Urine Negative (Negative); PH, Urine 6.5 (5.0-8.0); Protein,Urine Negative (Negative); RBC,Urine 1 /hpf (0-5); Squamous Epithelial Cell,Urine 2 /hpf (0-4); Urobilinogen,Urine <2.0 mg/dL (<2.0); WBC,Urine 1 /hpf (0-5)
--- NOTE | 2023-01-20 23:45 | US ---
EXAM: US , Limited CLINICAL HISTORY: 14 weeks preg via LMP. Vaginal bleeding no pain TECHNIQUE: Real-time limited ultrasound of the maternal uterus with image documentation. COMPARISON: No relevant prior studies available. FINDINGS: Fetus: Positive motion and reported. Gestational age: The estimated gestational age by biometry is consistent with 16 weeks 2 days. KAHLIL: The estimated date of delivery is 07/05/2023. EFW: The estimated weight is 141 g. BPD: The biparietal diameter is consistent with 16 weeks 2 days. HC: The head circumference is consistent with 16 weeks 2 days. AC: The abdominal circumference is consistent with 16 weeks 3 days. FL: The femur length is consistent with 15 weeks 3 days. Position: Single intrauterine gestation identified in variable position. Biometrics: Positive heart tones at 139 bpm. Placenta: The placenta is anterior in location. No evidence for abruption or previa. Amniotic fluid: The GERRI is 13.9 cm. IMPRESSION: 1. Single intrauterine gestation identified in variable position. Positive heart tones 139 bpm. 2. The placenta is anterior in location. No evidence for abruption or previa. The GERRI is 13.9 cm. 3. The estimated gestational age by biometry is consistent with 16 weeks 2 days. The estimated date of delivery is 07/05/2023. The estimated weight is 141 g.
== END 2023-01-21 00:59 | disposition home or self-care (01) ==
LOC: EC 22:04
DX: O46.92 Antepartum hemorrhage, unspecified, second trimester (principal); O99.512 Diseases of the respiratory system complicating pregnancy, second trimester; J45.909 Unspecified asthma, uncomplicated; Z3A.16 16 weeks gestation of pregnancy
CPT/HCPCS: 36415; 76805; 80053; 81001; 84702; 85025; 99284

== ENCOUNTER 2023-03-03 14:02 | Emergency (ER) | payer OTHER ==
[2023-03-03 14:19] VITALS: RESP 18
[2023-03-03] MEDS ORDERED: ALBUTEROL HFA INHALER INHALATION STA (14:25)
--- NOTE | 2023-03-03 14:29 | ED ---
URI HPI - General Chief Complaint: Upper Respiratory Infection Stated Complaint: covid+ SOB, 21wk preg Time Seen by Provider: 03/03/23 14:14 Source: patient, RN notes reviewed Mode of arrival: ambulatory Limitations: no limitations - History of Present Illness Initial Comments: Patient is a 22-year-old female presenting to the ER with a chief complaint of shortness of breath. Patient is 21 weeks . Patient reports her symptoms started yesterday morning. Patient reports she was seen at urgent care yesterday and was diagnosed with tonsillitis and was COVID negative. Today she received a phone call stating her covid test was positive. Patient reports chest discomfort and wheezing. She has been using her albuterol inhaler with slight relief. She also endorses headaches and constipation. Denies any fevers or other complaints at this time. - Related Data Previous Rx's Medication Instructions Recorded Diclofenac Sodium 50 mg PO BID PRN #20 tab 08/04/21 predniSONE 50 mg PO DAILY #5 tab 11/04/22 Allergies Allergy/AdvReac Type Severity Reaction Status Date / Time No Known Allergies Allergy Verified 03/03/23 14:07 Review of Systems ROS Statement: Those systems with pertinent positive or pertinent negative responses have been documented in the HPI. ROS Other: All systems not noted in ROS Statement are negative. Past Medical History Past Medical History: Asthma History of Any Multi-Drug Resistant Organisms: None Reported Past Surgical History: No Surgical Hx Reported Past Psychological History: Anxiety Smoking Status: Former smoker, Vaper Past Alcohol Use History: None Reported Past Drug Use History: None Reported General Exam Limitations: no limitations General appearance: alert, in no apparent distress ENT exam: Present: normal exam, normal oropharynx, mucous membranes moist, TM's normal bilaterally, normal external ear exam Neck exam: Present: normal inspection. Absent: tenderness, meningismus, lymphadenopathy Respiratory exam: Present: normal lung sounds bilaterally. Absent: respiratory distress, wheezes, rales, rhonchi, stridor Cardiovascular Exam: Present: regular rate, normal rhythm, normal heart sounds. Absent: systolic murmur, diastolic murmur, rubs, gallop, clicks GI/Abdominal exam: Present: soft, normal bowel sounds. Absent: distended, tenderness, guarding, rebound, rigid Extremities exam: Present: normal inspection Course Vital Signs 03/03/23 14:03 Temperature 98.3 F Pulse Rate 92 Respiratory 18 Rate Blood Pressure 106/69 O2 Sat by Pulse 99 Oximetry Medical Decision Making - Medical Decision Making Was pt. sent in by a medical professional or institution (JANAE Banegas, BULB PLANTER, urgent care, hospital, or snf...) When possible be specific @ -No Did you speak to anyone other than the patient for history (EMS, parent, family, police, friend...)? What history was obtained from this source @ -No Did you review nursing and triage notes (agree or disagree)? Why? @ -I reviewed and agree with nursing and triage notes Were old charts reviewed (outside hosp., previous admission, EMS record, old EKG, old radiological studies, urgent care reports/EKG's, snf records)? Report findings @ -No old charts were reviewed Differential Diagnosis (chest pain, altered mental status, abdominal pain women, abdominal pain men, vaginal bleeding, weakness, fever, dyspnea, syncope, headache, dizziness, GI bleed, back pain, seizure, CVA, palpatations, mental health, musculoskeletal)? @ -[COVID, Pulmonary embolism, asthma, anxiety, Influenza, RSV EKG interpreted by me (3pts min.). @ -As above X-rays interpreted by me (1pt min.). @ -None done CT interpreted by me (1pt min.). @ -None done U/S interpreted by me (1pt. min.). @ -None done What testing was considered but not performed or refused? (CT, X-rays, U/S, labs)? Why? @ -Patient refused chest x-rays at this time due to . What meds were considered but not given or refused? Why? @ -Considered inhaler albuterol patient denied because she has her own inhaler with her. Did you discuss the management of the patient with other professionals (professionals i.e. JANAE Banegas, BULB PLANTER, lab, RT, psych nurse, transition social worker, cable armorer operator, teacher, ordnance corps officer, hospice case manager)? Give summary @ -No Was smoking cessation discussed for >3mins.? @ -No Was critical care preformed (if so, how long)? @ -No Were there social determinants of health that impacted care today? How? (Homelessness, low income, unemployed, alcoholism, drug addiction, transportation, low edu. Level, literacy, decrease access to med. care, custodial, r ehab)? @ -No Was there de-escalation of care discussed even if they declined (Discuss DNR or withdrawal of care, Hospice)? DNR status @ -No What co-morbidities impacted this encounter? (DM, HTN, Smoking, COPD, CAD, Cancer, CVA, ARF, Chemo, Hep., AIDS, mental health diagnosis, sleep apnea, morbid obesity)? @ -None Was patient admitted / discharged? Hospital course, mention meds given and route, prescriptions, significant lab abnormalities, going to OR and other pertinent info. @ -Patient is a 22-year-old female presenting to the ER with a chief complaint of dyspnea. Patient is 21 weeks . Patient tested positive for covid. EKG showed normal sinus rhythm with no T wave abnormalities. Patient refused chest x-ray at this time due to . Patient will be discharged. Patient advised to continue using her albuterol inhaler as needed and follow up with her PCP. Undiagnosed new problem with uncertain prognosis? @ -No Drug Therapy requiring intensive monitoring for toxicity (Heparin, Nitro, Insulin, Cardizem)? @ -No Were any procedures done? @ -No Diagnosis/symptom? @ -Covid Acute, or Chronic, or Acute on Chronic? @ -Acute Uncomplicated (without systemic symptoms) or Complicated (systemic symptoms)? @ -Uncomplicated Side effects of treatment? @ -No Exacerbation, Progression, or Severe Exacerbation? @ -No Poses a threat to life or bodily function? How? (Chest pain, [place], [place], pneumonia, PE, COPD, DKA, ARF, appy, cholecystitis, CVA, Diverticulitis, Homicidal, Suicidal, threat to staff... and all critical care pts) @ -No - Lab Data Lab Results 03/03/23 Range/Units 14:30 Coronavirus (PCR) Detected A (Not Detectd) - EKG Data -: EKG Interpreted by Me EKG shows normal: sinus rhythm EKG Comments: EKG taken at 14: 36. Shows a normal sinus rhythm with a ventricular rate of 99, MS interval of 105, QRS 72, and QT/QTC interval of 346/402. Interpretation: no acute changes, normal EKG Disposition Clinical Impression: COVID Disposition: HOME SELF-CARE Condition: Stable Instructions (If sedation given, give patient instructions): COVID-19 (Coronavirus Disease 2019) (ED) Additional Instructions: Please return to the Emergency Department if symptoms worsen or any other concerns. Is patient prescribed a controlled substance at d/c from ED?: No Referrals: Lucho Mendez MD [Primary Care Provider] - 1-2 days Time of Disposition: 15:48
[2023-03-03 16:19] VITALS: BP 121/76; PULSE 76; TEMP 98.1
== END 2023-03-03 16:05 | disposition home or self-care (01) ==
LOC: EC 14:02
DX: O98.512 Other viral diseases complicating pregnancy, second trimester (principal); U07.1 COVID-19; O99.512 Diseases of the respiratory system complicating pregnancy, second trimester; J45.909 Unspecified asthma, uncomplicated; O99.332 Smoking (tobacco) complicating pregnancy, second trimester; F17.290 Nicotine dependence, other tobacco product, uncomplicated; Z86.59 Personal history of other mental and behavioral disorders; Z3A.21 21 weeks gestation of pregnancy
CPT/HCPCS: 87635; 93005; 99285

== ENCOUNTER 2023-04-13 15:02 | Outpatient (CLI) | payer OTHER ==
[2023-04-13 16:22] VITALS: BP 121/68; PULSE 87; RESP 16; TEMP 97.3
--- NOTE | 2023-07-02 07:58 | P.MSEPDOC ---
Presenting Problems - Arrival Data Date of Arrival on Unit: 04/13/23 Time of Arrival on Unit: 15:03 Mode of Transport: Ambulatory - Complaint OB-Reason for Admission/Chief Complaint: Pain Medical History - Information : 1 Para: 0 Term: 0 : 0 Abortions: Spontaneous or Elective: 0 Number of Living Children: 0 - Gestational Age Gestational Age by KAHLIL (wks/days): 26 Weeks and 2 Days Review of Systems - Review of Systems Constitutional: No problems Breast: No problems ENT: No problems Cardiovascular: No problems Respiratory: No problems Gastrointestinal: No problems Genitourinary: No problems Musculoskeletal: No problems Neurological: No problems Skin: No problems Vital Signs - Temperature Temperature: 97.3 F Temperature Source: Temporal Artery Scan - Pulse Right Brachial Pulse Rate: 87 Pulse Assessment Method: Automatic Cuff - Respirations Respiratory Rate: 16 Oxygen Delivery Method: Room Air - Blood Pressure Right Arm Blood Pressure: 121/68 Blood Pressure Mean: 85 Blood Pressure Source: Automatic Cuff Medical Screen Scoring - Assessment - Baby A Baseline FHR: 135 Heart Rate - NICHD Category: Category I (Normal) NST: Reactive Physician Notification - Physician Notified Physician Notified Date: 04/13/23 Physician Notified Time: 16:03 Physician: Camryn Kowalski New Order Received: Yes - Notification Comment Comment: d/c home Maternal Triage Index - Maternal Triage Index Presenting for scheduled procedure w/no complaint: No - Stat/Priority 1 Stat Priority 1: No - Urgent/Priority 2 Urgent Priority 2: No - Prompt/Priority 3 Prompt Priority 3: No - Non-Urgent/Priority 4 Non-Urgent Priority 4: Yes Criteria Met for Priority 4: common discomforts of - Scheduled/Requesting Priority 5 Scheduled/Requesting Priority 5: No Disposition - Disposition OB Disposition: Discharge to home Discharge Date: 04/13/23 Discharge Time: 16:03 I agree with the RN Medical Screening Exam: Yes Case reviewed; plan agreed upon as documented in EMR&OBIX.: Yes Diagnosis: PAIN, UNSPECIFIED
== END 2023-04-13 16:03 | disposition home or self-care (01) ==
LOC: FBPOP 15:02
PROVIDERS: ATTEND Obstetrics & Gynecology
DX: Z53.9 Procedure and treatment not carried out, unspecified reason (principal)
CPT/HCPCS: 99213

== ENCOUNTER 2023-04-16 10:14 | Outpatient (CLI) | payer OTHER ==
[2023-04-16] MEDS ORDERED: LACTATED RINGERS 1,000 ML IV SCH (12:15)
[2023-04-16 13:51] VITALS: PULSE 90; RESP 17; TEMP 98.5
--- NOTE | 2023-04-19 09:08 | P.MSEPDOC ---
Presenting Problems - Arrival Data Date of Arrival on Unit: 04/16/23 Time of Arrival on Unit: 10:14 Mode of Transport: Ambulatory - Complaint OB-Reason for Admission/Chief Complaint: Acute Nausea/Vomiting, Other Comment: pt presents to triage for chest pain, SOB, body aches, nausea, and cramping that started at 0600 this am while pt at work Medical History - Information : 1 Para: 0 Term: 0 : 0 Abortions: Spontaneous or Elective: 0 Number of Living Children: 0 - Gestational Age Gestational Age by KAHLIL (wks/days): 26 Weeks and 5 Days Review of Systems - Review of Systems Constitutional: No problems Breast: No problems ENT: No problems Cardiovascular: No problems Respiratory: No problems Gastrointestinal: No problems Genitourinary: No problems Musculoskeletal: No problems Neurological: No problems Skin: No problems Vital Signs - Temperature Temperature: 98.5 F Temperature Source: Temporal Artery Scan - Pulse Right Brachial Pulse Rate: 90 Pulse Assessment Method: Automatic Cuff - Respirations Respiratory Rate: 17 Oxygen Delivery Method: Room Air O2 Sat by Pulse Oximetry: 98 Medical Screen Scoring - Cervical Exam Dilation (cm): 0 Effacement (%): 0 Membranes: Intact - Uterine Contractions Frequency From (mins): 2 Frequency To (mins): 10 Duration From (seconds): 30 Duration To (seconds): 50 Intensity: Mild Resting: Soft to palpation - Assessment - Baby A Baseline FHR: 140 Heart Rate - NICHD Category: Category I (Normal) Physician Notification - Notification Comment Comment: pt's swabs negative for flu and covid, cervix closed/thick/high, given 1 liter of ivf, pt feeling better, less cramping, has scheduled appt on 04/[address] Turcios in the office, Maternal Triage Index - Maternal Triage Index Presenting for scheduled procedure w/no complaint: No - Stat/Priority 1 Stat Priority 1: No - Urgent/Priority 2 Urgent Priority 2: Yes Provider Notified: Marialuisa Turcios Provider Notified Time: 10:45 Criteria Met for Priority 2: pt presents to triage for chest pain, SOB, body aches, nausea, and cramping that started at 0600 this am while pt at work Disposition - Disposition OB Disposition: Triage, Discharge to home, Written follow up instructions reviewed Discharge Date: 04/16/23 Discharge Time: 13:15 I agree with the RN Medical Screening Exam: Yes Case reviewed; plan agreed upon as documented in EMR&OBIX.: Yes Diagnosis: DEHYDRATION
== END 2023-04-16 13:15 | disposition home or self-care (01) ==
LOC: FBPOP 10:14
PROVIDERS: ATTEND Obstetrics & Gynecology
DX: O21.1 Hyperemesis gravidarum with metabolic disturbance (principal); Z3A.26 26 weeks gestation of pregnancy; Z20.822 Contact with and (suspected) exposure to COVID-19
CPT/HCPCS: 96360; 87636; G0463; 99214

== ENCOUNTER → 2023-04-17 | Outpatient (CLI) | payer OTHER ==
[2023-04-17 10:36] VITALS: BP 111/64; PULSE 80; RESP 18; TEMP 97.6
--- NOTE | 2023-04-18 06:59 | P.MSEPDOC ---
Presenting Problems - Arrival Data Date of Arrival on Unit: 04/17/23 Time of Arrival on Unit: 07:55 Mode of Transport: Ambulatory - Complaint OB-Reason for Admission/Chief Complaint: Visual Disturbances Comment: seeing spots Medical History - Information : 1 Para: 0 Term: 0 : 0 Abortions: Spontaneous or Elective: 0 Number of Living Children: 0 - Gestational Age Gestational Age by KAHLIL (wks/days): 26 Weeks and 6 Days Review of Systems - Review of Systems Constitutional: No problems Breast: No problems ENT: No problems Cardiovascular: No problems Respiratory: No problems Gastrointestinal: No problems Genitourinary: No problems Musculoskeletal: No problems Neurological: No problems Skin: No problems Vital Signs - Temperature Temperature: 97.6 F Temperature Source: Temporal Artery Scan - Pulse Right Pulse Oximetery Pulse Rate: 80 Pulse Assessment Method: Pulse Oximetry - Respirations Respiratory Rate: 18 Oxygen Delivery Method: Room Air O2 Sat by Pulse Oximetry: 98 - Blood Pressure Right Arm Blood Pressure: 111/64 Blood Pressure Mean: 79 Blood Pressure Source: Automatic Cuff Medical Screen Scoring - Uterine Contractions Frequency From (mins): 1 Frequency To (mins): 4 Duration From (seconds): 40 Duration To (seconds): 50 Intensity: Mild Resting: Soft to palpation - Assessment - Baby A Baseline FHR: 145 Heart Rate - NICHD Category: Category I (Normal) NST: Reactive Physician Notification - Physician Notified Physician Notified Date: 04/17/23 Physician Notified Time: 08:15 Physician: Carlos Silva New Order Received: Yes (check patients cervix and if cervix is still closed thick and high D/C) - Notification Comment Comment: order to D/C patient if cervix is still closed/thick/high and follow up with Dr Turcios next week. Maternal Triage Index - Maternal Triage Index Presenting for scheduled procedure w/no complaint: No - Stat/Priority 1 Stat Priority 1: No - Urgent/Priority 2 Urgent Priority 2: Yes Provider Notified: Carlos Silva Provider Notified Time: 08:15 Criteria Met for Priority 2: Pt 27 weeks gestation with detectable uterine contractions (pt did however come in for visual disturbances with to other complaints) Disposition - Disposition OB Disposition: Discharge to home Discharge Date: 04/17/23 Discharge Time: 08:25 I agree with the RN Medical Screening Exam: Yes Case reviewed; plan agreed upon as documented in EMR&OBIX.: Yes Diagnosis: RELATED CONDITIONS, UNSPECIFIED, SECOND TRIMESTER
== END ==
LOC: FBPOP 07:55
PROVIDERS: ATTEND Obstetrics & Gynecology
DX: O99.891 Other specified diseases and conditions complicating pregnancy (principal); H53.9 Unspecified visual disturbance; O62.9 Abnormality of forces of labor, unspecified; Z3A.26 26 weeks gestation of pregnancy
CPT/HCPCS: 99213

== ENCOUNTER 2023-05-05 10:19 | Outpatient (CLI) | payer OTHER ==
[2023-05-05 11:52] VITALS: BP 110/70; PULSE 89; RESP 16; TEMP 98.6
--- NOTE | 2023-05-05 16:01 | P.MSEPDOC ---
Presenting Problems - Arrival Data Date of Arrival on Unit: 05/05/23 Time of Arrival on Unit: 10:19 Mode of Transport: Ambulatory - Complaint OB-Reason for Admission/Chief Complaint: Acute Nausea/Vomiting, Headache Comment: Pt reports to triage c/o elevated BP, headache x 5 days, and vision changes. Medical History - Information : 1 Para: 0 - Gestational Age Gestational Age by KAHLIL (wks/days): 29 Weeks and 3 Days Review of Systems - Review of Systems Constitutional: No problems Breast: No problems ENT: No problems Cardiovascular: No problems Respiratory: No problems Gastrointestinal: No problems Genitourinary: No problems Musculoskeletal: No problems Neurological: No problems Skin: No problems Vital Signs - Temperature Temperature: 98.6 F Temperature Source: Temporal Artery Scan - Pulse Right Sitting Brachial Pulse Rate: 89 Pulse Assessment Method: Automatic Cuff - Respirations Respiratory Rate: 16 Oxygen Delivery Method: Room Air O2 Sat by Pulse Oximetry: 99 - Blood Pressure Right Arm Sitting Blood Pressure: 110/70 Blood Pressure Mean: 83 Blood Pressure Source: Automatic Cuff Medical Screen Scoring - Cervical Exam Dilation (cm): 0 Effacement (%): 0 Membranes: Intact - Uterine Contractions Frequency From (mins): 1 Frequency To (mins): 4 Duration From (seconds): 50 Duration To (seconds): 70 Intensity: Mild Resting: Soft to palpation - Assessment - Baby A Baseline FHR: 140 Heart Rate - NICHD Category: Category I (Normal) NST: Reactive Physician Notification - Physician Notified Physician Notified Date: 05/05/23 Physician Notified Time: 11:20 Physician: Marialuisa Turcios - Notification Comment Comment: Spk c\\Dr. Turcios, advsd , 29 08/15, c/o elevated BP at home, headache x 5 days and "waves" in vision while lying down. Reviewed BPs and PIH physical asst (negative). Reviewed EFM and TOCO. Order rec'd to collect FFN and perform SVE. If cervix closed, pt may be discharged home and FFN does not need to be sent. Review use of antihistamine (not decongestant) for headache. 1128: SVE- closed/thick/floating; FFN not sent; Pt states she has antihistamine at home and will try. Maternal Triage Index - Maternal Triage Index Presenting for scheduled procedure w/no complaint: No - Stat/Priority 1 Stat Priority 1: No - Urgent/Priority 2 Urgent Priority 2: Yes Provider Notified: Marialuisa Turcios Provider Notified Time: 11:05 Criteria Met for Priority 2: Pt reported BPs at home 140/90 Disposition - Disposition OB Disposition: Discharge to home, Written follow up instructions reviewed Discharge Date: 05/05/23 Discharge Time: 11:30 I agree with the RN Medical Screening Exam: Yes Case reviewed; plan agreed upon as documented in EMR&OBIX.: Yes Diagnosis: OTHER CHRONIC SINUSITIS
== END 2023-05-05 11:30 | disposition home or self-care (01) ==
LOC: FBPOP 10:19
PROVIDERS: ATTEND Obstetrics & Gynecology
DX: O99.513 Diseases of the respiratory system complicating pregnancy, third trimester (principal); J32.8 Other chronic sinusitis; O21.9 Vomiting of pregnancy, unspecified; Z3A.29 29 weeks gestation of pregnancy
CPT/HCPCS: 59025; G0463; 99213

== ENCOUNTER 2023-06-19 14:40 | Outpatient (CLI) | payer OTHER ==
[2023-06-19 16:33] VITALS: BP 137/74; PULSE 86; RESP 16; TEMP 97.2
--- NOTE | 2023-06-22 02:04 | P.MSEPDOC ---
Presenting Problems - Arrival Data Date of Arrival on Unit: 06/19/23 Time of Arrival on Unit: 14:40 Mode of Transport: Wheelchair - Complaint OB-Reason for Admission/Chief Complaint: Possible Onset of Labor Medical History - Information : 1 Para: 0 Term: 0 : 0 Abortions: Spontaneous or Elective: 0 Number of Living Children: 0 - Gestational Age Gestational Age by KAHLIL (wks/days): 35 Weeks and 6 Days - History Complications: GBS+ Review of Systems - Review of Systems Constitutional: No problems Breast: No problems ENT: No problems Cardiovascular: No problems Respiratory: No problems Gastrointestinal: No problems Genitourinary: No problems Musculoskeletal: No problems Neurological: No problems Skin: No problems Vital Signs - Temperature Temperature: 97.2 F Temperature Source: Temporal Artery Scan - Pulse Right Sitting Pulse Rate: 86 Pulse Assessment Method: Automatic Cuff - Respirations Respiratory Rate: 16 Oxygen Delivery Method: Room Air O2 Sat by Pulse Oximetry: 100 - Blood Pressure Right Arm Blood Pressure: 137/74 Blood Pressure Mean: 95 Blood Pressure Source: Automatic Cuff Medical Screen Scoring - Cervical Exam Dilation (cm): 1 Effacement (%): 60 Station: -2 Membranes: Intact - Uterine Contractions Frequency From (mins): 1 Frequency To (mins): 2 Duration From (seconds): 50 Duration To (seconds): 60 Intensity: Mild Resting: Soft to palpation - Assessment - Baby A Baseline FHR: 120 Heart Rate - NICHD Category: Category I (Normal) NST: Reactive Physician Notification - Physician Notified Physician Notified Date: 06/19/23 Physician Notified Time: 16:02 Physician: Carlos Silva New Order Received: Yes (d/c home) Maternal Triage Index - Prompt/Priority 3 Prompt Priority 3: Yes Criteria Met for Priority 3: reactive nst, contractions every 1.5-2 minutes, becoming more irregular, amnisure negative, vag exam same after 1 hour Disposition - Disposition OB Disposition: Discharge to home Discharge Date: 06/19/23 Discharge Time: 16:07 I agree with the RN Medical Screening Exam: Yes Case reviewed; plan agreed upon as documented in EMR&OBIX.: Yes Diagnosis: FALSE LABOR BEFORE 37 COMPLETED WEEKS OF GEST, THIRD TRI
== END 2023-06-19 16:07 | disposition home or self-care (01) ==
LOC: FBPOP 14:40
PROVIDERS: ATTEND Obstetrics & Gynecology
DX: O47.03 False labor before 37 completed weeks of gestation, third trimester (principal); O99.820 Streptococcus B carrier state complicating pregnancy; Z3A.35 35 weeks gestation of pregnancy
CPT/HCPCS: 59025; 84112; G0463; 99213

== ENCOUNTER 2023-07-07 23:03 | Outpatient (CLI) | payer OTHER ==
[2023-07-08 01:14] VITALS: BP 131/85; PULSE 106; RESP 16; TEMP 97.5
--- NOTE | 2023-09-08 08:22 | P.MSEPDOC ---
Presenting Problems - Arrival Data Date of Arrival on Unit: 07/07/23 Time of Arrival on Unit: 23:03 Mode of Transport: Ambulatory - Complaint OB-Reason for Admission/Chief Complaint: Possible Onset of Labor, Rule Out SROM Comment: Pt presents to triage with c/o of contractions that started and hour and a half ago. Pt reports contractions are every 5 minutes apart lasting for 1 minute. Pt rates pain 5 out of 10. Pt reports leaking clear fluid that started an hour ago and reports having intercourse 3 hours ago. Medical History - Information : 1 Para: 0 Term: 0 : 0 Abortions: Spontaneous or Elective: 0 Number of Living Children: 0 - Gestational Age Gestational Age by KAHLIL (wks/days): 38 Weeks and 4 Days Review of Systems - Review of Systems Constitutional: No problems Breast: No problems ENT: No problems Cardiovascular: No problems Respiratory: No problems Gastrointestinal: No problems Genitourinary: No problems Musculoskeletal: No problems Neurological: No problems Skin: No problems Vital Signs - Temperature Temperature: 97.5 F Temperature Source: Temporal Artery Scan - Pulse Pulse Oximetery Pulse Rate: 106 Pulse Assessment Method: Automatic Cuff - Respirations Respiratory Rate: 16 Oxygen Delivery Method: Room Air - Blood Pressure Right Arm Blood Pressure: 131/85 Blood Pressure Mean: 100 Blood Pressure Source: Automatic Cuff Medical Screen Scoring - Cervical Exam Dilation (cm): 2 Effacement (%): 80 Station: -2 Membranes: Intact - Uterine Contractions Frequency From (mins): 4 Frequency To (mins): 5 Duration From (seconds): 90 Duration To (seconds): 120 Intensity: Mild Resting: Soft to palpation - Assessment - Baby A Baseline FHR: 150 Heart Rate - NICHD Category: Category I (Normal) NST: Reactive Physician Notification - Physician Notified Physician Notified Date: 07/08/23 Physician Notified Time: 00:27 Physician: Camryn Kowalski New Order Received: Yes - Notification Comment Comment: RN spoke with Dr. Kowalski regarding triage pt c/o contx that started around 2129 last night, pt did have intercourse around 2029 and pt had an appt yesterday where her cervix was checked twice. Additionally, pt thought she was leaking fluid. Reported cervical exam of 2/80/-2 with no change after an hour, negative amnisure, mild contx every 2-5 minutes apart and reactive NST. Order received to discharge pt home. Maternal Triage Index - Maternal Triage Index Presenting for scheduled procedure w/no complaint: No - Stat/Priority 1 Stat Priority 1: No - Urgent/Priority 2 Urgent Priority 2: No - Prompt/Priority 3 Prompt Priority 3: No - Non-Urgent/Priority 4 Non-Urgent Priority 4: Yes Criteria Met for Priority 4: > 37 weeks early labor signs and c/o SROM Disposition - Disposition OB Disposition: Discharge to home, Written follow up instructions reviewed Discharge Date: 07/08/23 Discharge Time: 00:30 I agree with the RN Medical Screening Exam: Yes Case reviewed; plan agreed upon as documented in EMR&OBIX.: Yes Diagnosis: PRIMARY INADEQUATE CONTRACTIONS
== END 2023-07-08 00:30 | disposition home or self-care (01) ==
LOC: FBPOP 23:03
PROVIDERS: ATTEND Obstetrics & Gynecology
DX: O47.1 False labor at or after 37 completed weeks of gestation (principal)
CPT/HCPCS: 59025; 84112; G0463; 99213

== ENCOUNTER 2023-07-08 22:15 | Outpatient (CLI) | payer OTHER ==
[2023-07-09 00:18] VITALS: BP 132/84; PULSE 90; RESP 16; TEMP 98.2
--- NOTE | 2023-07-09 04:23 | P.MSEPDOC ---
Presenting Problems - Arrival Data Date of Arrival on Unit: 07/08/23 Time of Arrival on Unit: 22:15 Mode of Transport: Ambulatory - Complaint OB-Reason for Admission/Chief Complaint: Possible Onset of Labor Medical History - Information : 1 Para: 0 Term: 0 : 0 Abortions: Spontaneous or Elective: 0 Number of Living Children: 0 - Gestational Age Gestational Age by KAHLIL (wks/days): 38 Weeks and 4 Days Review of Systems - Review of Systems Constitutional: No problems Breast: No problems ENT: No problems Cardiovascular: No problems Respiratory: No problems Gastrointestinal: No problems Genitourinary: No problems Musculoskeletal: No problems Neurological: No problems Skin: No problems Vital Signs - Temperature Temperature: 98.2 F Temperature Source: Temporal Artery Scan - Pulse Right Brachial Pulse Rate: 90 Pulse Assessment Method: Automatic Cuff - Respirations Respiratory Rate: 16 Oxygen Delivery Method: Room Air O2 Sat by Pulse Oximetry: 98 - Blood Pressure Right Arm Blood Pressure: 132/84 Blood Pressure Mean: 100 Blood Pressure Source: Automatic Cuff Medical Screen Scoring - Cervical Exam Dilation (cm): 2 Effacement (%): 80 Station: -2 Membranes: Intact - Uterine Contractions Frequency From (mins): 2 Frequency To (mins): 5 Duration From (seconds): 60 Duration To (seconds): 80 Intensity: Mild Resting: Soft to palpation - Assessment - Baby A Baseline FHR: 130 Heart Rate - NICHD Category: Category I (Normal) NST: Reactive Physician Notification - Physician Notified Physician Notified Date: 07/08/23 Physician Notified Time: 23:30 Physician: Carlos Silva New Order Received: Yes - Notification Comment Comment: Dr. Silva called with report on 38 08/15 who presents for contractions. Cervical exam 2/80/-2 and remains the same after 1 hour. Reactive NST. Contractions 2-5 minutes apart. Vitals reviewed. Orders recieved to discharge patient home. Maternal Triage Index - Stat/Priority 1 Stat Priority 1: No - Urgent/Priority 2 Urgent Priority 2: No - Prompt/Priority 3 Prompt Priority 3: No - Non-Urgent/Priority 4 Non-Urgent Priority 4: Yes Criteria Met for Priority 4: 38 4/7 Disposition - Disposition OB Disposition: Discharge to home Discharge Date: 07/08/23 Discharge Time: 23:35 I agree with the RN Medical Screening Exam: Yes Case reviewed; plan agreed upon as documented in EMR&OBIX.: Yes Diagnosis: FALSE LABOR AT OR AFTER 37 COMPLETED WEEKS OF GESTATION (Patient presents to labor and delivery with complaints of contractions. Patient on the monitor is having irregular contractions and no cervical change after prolonged observation. Cervix is same as when she was here yesterday. heart tones are category 1. This time there is no evidence of maternal or compromise and it does not appear that the patient is in labor therefore she is discharged home follow up with Dr. Turcios as scheduled.)
== END 2023-07-08 23:35 ==
LOC: FBPOP 22:15
PROVIDERS: ATTEND Obstetrics & Gynecology
DX: O47.1 False labor at or after 37 completed weeks of gestation (principal); Z3A.38 38 weeks gestation of pregnancy
CPT/HCPCS: 59025; G0463; 99213

== ENCOUNTER 2023-07-12 11:21 | Inpatient (IN) | payer OTHER ==
[2023-07-12] MEDS ORDERED: TERBUTALINE 1 MG/ML VIAL SQ PRN (12:23)
[2023-07-12] MEDS ORDERED: TRANEXAMIC 1,000 MG/100ML-NACL 1,000 MG in EMPTY BAG 1 BAG IV PRN (12:23)
[2023-07-12] MEDS ORDERED: METHYLERGONOVINE 0.2 MG/ML 1 ML AMP IM PRN (12:23)
[2023-07-12] MEDS ORDERED: CARBOPROST TROMETHAMINE 250 MCG/ML 1 ML AMP IM PRN (12:23)
[2023-07-12] MEDS ORDERED: OXYTOCIN 10 UNIT/ML 1 ML VIAL IM PRN (12:23)
[2023-07-12] MEDS ORDERED: miSOPROStoL 200 MCG TAB PO PRN (12:23)
[2023-07-12] MEDS: LACTATED RINGERS 1,000 ML IV SCH (12:57)
[2023-07-12] MEDS: AMPICILLIN 2,000 MG in SODIUM CHLORIDE 0.9% 100 ML IVPB STA (12:57)
[2023-07-12 13:16] LABS: Basophils % (A) 0 %; Eosinophils # (A) 0.1 k/uL (0-0.7); Eosinophils % (A) 2 %; HCT 35.5 % (34.0-46.0); HGB 11.6 gm/dL (11.4-16.0); Lymphocytes # (A) 1.6 k/uL (1.0-4.8); Lymphocytes % (A) 20 %; MCH 29.4 pg (25.0-35.0); MCHC 32.8 g/dL (31.0-37.0); MCV 89.6 fL (80.0-100.0); Mean Platelet Volume 8.5; Monocytes # (A) 0.3 k/uL (0-1.0); Monocytes % (A) 4 %; Neutrophils # (A) 5.7 k/uL (1.3-7.7); Neutrophils % (A) 73 %; Platelet Count 278 k/uL (150-450); RBC 3.96 m/uL (3.80-5.40); RDW 14.4 % (11.5-15.5); WBC 7.8 k/uL (3.8-10.6)
[2023-07-12] MEDS: OXYTOCIN 30 UNITS/500 ML NS 30 UNIT in SALINE 1 500ML.BAG IV SCH (13:28)
[2023-07-12] MEDS: AMPICILLIN 1,000 MG in SODIUM CHLORIDE 0.9% 50 ML IVPB SCH (15:58)
[2023-07-12] MEDS ORDERED: NALBUPHINE 10 MG/ML (10 ML MDV) IV PRN (17:01)
--- NOTE | 2023-07-12 18:41 | P.HPOB ---
History of Present Illness H&P Date: 07/12/23 Chief Complaint: Spontaneous rupture of membranes This is a 22-year-old female 1 para 0 with an estimated date of confinement of 07/18/2023, estimated gestational age of 39 and one sevenths weeks, who presented to labor and delivery with complaints of spontaneous rup ture membranes at approximately 10:45 AM this morning with clear fluid noted. She began feeling contractions shortly after. Her course has been essentially uncomplicated. She has had some issues with lower blood pressure and dizziness. She did see cardiology for this and was cleared. labs: Group B streptococcus-positive One hour Glucola-106 Hemoglobin-11.1 Blood type-A- Antibody screen-negative, RhoGAM given at 28 weeks Rubella-immune Toxoplasma-negative RPR-nonreactive HIV-nonreactive Hepatitis C antibody-negative nonreactive Random glucose-79 Hepatitis B surface antigen-negative Obstetrical history: First Gynecologic history: History of chlamydia treated in the past. Social history: She is single. 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 Review of Systems Constitutional: Denies chills, Denies fever Eyes: denies blurred vision, denies pain Ears, nose, mouth and throat: Denies headache, Denies sore throat Cardiovascular: Reports lightheadedness, Reports shortness of breath (Occasional), Denies chest pain Respiratory: Denies cough Gastrointestinal: Reports abdominal pain (Irregular contractions), Denies diarrhea, Denies nausea, Denies vomiting Genitourinary: Reports pelvic pain, Reports Musculoskeletal: Reports low back pain Integumentary: Denies pruritus, Denies rash Neurological: Denies numbness, Denies weakness Psychiatric: Reports anxiety, Reports depression Past Medical History Past Medical History: Asthma History of Any Multi-Drug Resistant Organisms: None Reported Past Surgical History: No Surgical Hx Reported Past Anesthesia/Blood Transfusion Reactions: No Reported Reaction Past Psychological History: Anxiety, Depression Smoking Status: Former smoker (Quit with ), Vaper Past Alcohol Use History: None Reported Past Drug Use History: Marijuana (History of marijuana prior to ) - Past Family History Father Family Medical History: Hypertension Additional Family Medical History / Comment(s): kidney stones Medications and Allergies Home Medications Medication Instructions Recorded Confirmed Type Vit No.179/Iron/Folic 1 tab PO ONCE 07/07/23 07/12/23 History [ Tablet] Allergies Allergy/AdvReac Type Severity Reaction Status Date / Time No Known Allergies Allergy Verified 07/12/23 11:33 Exam Osteopathic Statement: *. No significant issues noted on an osteopathic structural exam other than those noted in the History and Physical/Consult. Vital Signs Temp Pulse Resp BP 07/12/23 13:16 98.4 F 80 17 122/77 07/12/23 12:06 98.4 F 80 17 122/77 Intake and Output 07/12/23 07/12/23 07/12/23 06:59 14:59 22:59 Other: # Voids 1 Weight 73.028 kg HEENT: Within normal limits Heart: Regular rate and rhythm Lungs: Clear to auscultation bilaterally Abdomen: Cervix: Initially was 2-3 on admission with positive amnisure with clear fluid noted. Currently she is 4 cm/90%/-1 station. heart tones: 130s with accelerations and moderate variability. Occasional variable deceleration. Contractions: On admission were irregular. Currently she is every 2-3 minutes. Extremities: Negative Homans Results Result Diagrams: 07/12/23 12:55 Assessment and Plan (1) 39 weeks gestation of Current Visit: Yes Status: Acute Code(s): Z3A.39 - 39 WEEKS GESTATION OF SNOMED Code(s): 98654501 (2) Group B Streptococcus carrier, +RV culture, currently Current Visit: Yes Status: Acute Code(s): O99.820 - STREPTOCOCCUS B CARRIER STATE COMPLICATING SNOMED Code(s): 4420562675171 Plan: Admission for labor. Antibiotic prophylaxis for group B streptococcus. Expectant management. Epidural anesthesia if desired.
--- NOTE | 2023-07-12 18:43 | P.MSEPDOC ---
Presenting Problems - Arrival Data Date of Arrival on Unit: 07/12/23 Time of Arrival on Unit: 11:21 Mode of Transport: Ambulatory - Complaint OB-Reason for Admission/Chief Complaint: Rule Out SROM Comment: pt presented to triage this am for SROM at 1045, still leaking clear fluid Medical History - Information : 1 Para: 0 Term: 0 : 0 Abortions: Spontaneous or Elective: 0 Number of Living Children: 0 - Gestational Age Gestational Age by KAHLIL (wks/days): 39 Weeks and 1 Days - History Complications: GBS+ Review of Systems - Review of Systems Constitutional: No problems Breast: No problems ENT: No problems Cardiovascular: No problems Respiratory: No problems Gastrointestinal: No problems Genitourinary: No problems Musculoskeletal: No problems Neurological: No problems Skin: No problems Vital Signs - Temperature Temperature: 98.4 F Temperature Source: Temporal Artery Scan - Pulse Right Brachial Pulse Rate: 80 Pulse Assessment Method: Automatic Cuff - Respirations Respiratory Rate: 17 Oxygen Delivery Method: Room Air - Blood Pressure Right Arm Blood Pressure: 122/77 Blood Pressure Mean: 92 Blood Pressure Source: Automatic Cuff Medical Screen Scoring - Cervical Exam Dilation (cm): 3 Effacement (%): 80 Station: -2 Membranes: Ruptured - Uterine Contractions Frequency From (mins): 3 Frequency To (mins): 5 Duration From (seconds): 40 Duration To (seconds): 70 Intensity: Mild Resting: Soft to palpation - Assessment - Baby A Baseline FHR: 135 Heart Rate - NICHD Category: Category I (Normal) NST: Reactive Physician Notification - Physician Notified Physician Notified Date: 07/12/23 Physician Notified Time: 12:15 Physician: Marialuisa Turcios Order Received: Yes - Notification Comment Comment: pt admitted for labor, positve amniosure, reactive nst Maternal Triage Index - Maternal Triage Index Presenting for scheduled procedure w/no complaint: No - Stat/Priority 1 Stat Priority 1: No - Urgent/Priority 2 Urgent Priority 2: No - Prompt/Priority 3 Prompt Priority 3: Yes Criteria Met for Priority 3: pt presented to triage this am for SROM at 1045, still leaking clear fluid Disposition - Disposition OB Disposition: Admit, LDRP Suite I agree with the RN Medical Screening Exam: Yes Case reviewed; plan agreed upon as documented in EMR&OBIX.: Yes Diagnosis: ENCOUNTER FOR FULL-TERM UNCOMPLICATED DELIVERY
[2023-07-12] MEDS ORDERED: fentaNYL (PF) 50 MCG/ML 5 ML AMP ONE (19:00)
[2023-07-12] MEDS ORDERED: SODIUM CHLORIDE 0.9% 250 ML BAG ONE (19:00)
[2023-07-12] MEDS ORDERED: ROPIVACAINE 5 MG/ML 30 ML VIAL ONE (19:00)
[2023-07-12] MEDS: LIDOCAINE 0.5% (PF) 5 MG/ML (50 ML SDV) SQ PRN (23:36)
--- NOTE | 2023-07-12 23:59 | P.PROBDLV ---
Vaginal Delivery Note - . Vaginal Delivery Note: The patient progressed to complete dilation after oxytocin augmentation of labor and she did try nitrous oxide followed by epidural anesthesia. Once reaching complete, she began pushing. She pushed for approximately 3 hours and then brought infant's head to a crown. With her pushing, heart tones did drop into the 70s on her last push. I then anesthetized the perineum and cut a midline episiotomy. With one further push, the infant's head easily delivered f ollowed by the anterior shoulder. Nose and mouth were bulb suctioned. The remainder the infant was easily delivered and placed on mother's abdomen. Nose and mouth were again bulb suctioned and then cord was clamped and cut. Infant was taken to warmer for evaluation. A viable male was noted with scores of 8 at 1 minute and 9 at 5 minutes and weight of 8 lbs. 0 oz. Placenta delivered shortly thereafter, intact, with a three-vessel cord. Uterus contracted fairly well after oxytocin was given and uterine massage was carried out. Inspection of the perineum revealed a second-degree mid line episiotomy. This area was anesthetized with 1% lidocaine and then sutured with 3-0 and 2-0 Vicryl suture in the usual multilayer fashion. She was also noted to have a periurethral laceration just directly above the urethra. This area was anesthetized with 1% lidocaine and then sutured with 3-0 Vicryl suture in a running locked fashion. Her bladder was also drained. She was still noted to be bleeding and therefore gloved hand was placed within the uterine cavity and a small amount of placental tissue was removed along with some blood clots. Uterus did firm up well after this. Estimated blood loss was approximately 200 mL's. Both mother and are in stable condition.
[2023-07-13] MEDS ORDERED: diphenhydrAMINE 50 MG/ML 1 ML VIAL IVP PRN ×2 (00:23)
[2023-07-13] MEDS ORDERED: HYDROCORTISONE 2.5% RECTAL CREAM 30 GM TUBE RECTAL PRN (00:23)
[2023-07-13] MEDS ORDERED: diphenhydrAMINE 50 MG CAP PO PRN (00:23)
[2023-07-13] MEDS ORDERED: OXYTOCIN 30 UNITS/500 ML NS 30 UNIT in SALINE 1 500ML.BAG IV SCH (00:23)
[2023-07-13] MEDS ORDERED: SIMETHICONE 80 MG CHEWABLE PO PRN (00:23)
[2023-07-13] MEDS ORDERED: LANOLIN CREAM 1 GM TUBE TOPICAL PRN (00:23)
[2023-07-13] MEDS ORDERED: ZOLPIDEM 5 MG TAB PO PRN (00:23)
[2023-07-13] MEDS: BENZOCAINE/MENTHOL SPRAY 1 GM/SPRAY AEROSOL TOPICAL PRN (00:34)
[2023-07-13] MEDS: diphenhydrAMINE 25 MG CAP PO PRN (00:37)
[2023-07-13] MEDS: PRENATAL VIT-IRON-FOLIC ACID 1 EACH TABLET PO ONE (00:37)
[2023-07-13] MEDS: IBUPROFEN 600 MG TAB PO PRN (00:37)
[2023-07-13 02:49] LABS: Basophils % (A) 0 %; Eosinophils % (A) 0 %; HCT 31.4 % (34.0-46.0); HGB 10.5 gm/dL (11.4-16.0); Lymphocytes # (A) 1.3 k/uL (1.0-4.8); Lymphocytes % (A) 10 %; MCH 30.1 pg (25.0-35.0); MCHC 33.5 g/dL (31.0-37.0); MCV 89.9 fL (80.0-100.0); Mean Platelet Volume 8.5; Monocytes # (A) 0.6 k/uL (0-1.0); Monocytes % (A) 4 %; Neutrophils # (A) 10.6 k/uL (1.3-7.7); Neutrophils % (A) 84 %; Platelet Count 249 k/uL (150-450); RBC 3.49 m/uL (3.80-5.40); RDW 14.4 % (11.5-15.5); WBC 12.7 k/uL (3.8-10.6)
[2023-07-13] MEDS: Rhogam IMMUNE GLOBULIN 1,500 UNIT/1 ML IM ONE (05:59)
[2023-07-13] MEDS: SENNOSIDES-DOCUSATE SODIUM 1 EACH TAB PO SCH (07:38)
--- NOTE | 2023-07-13 08:28 | P.PNOBGVD ---
Subjective - Subjective Principal diagnosis: Status post vaginal delivery day #1 Interval history: Patient has sore today but doing well. She is breast-feeding. Lochia has been decreasing. Patient reports: Reports appetite normal, Reports pain well controlled, Reports ambulating normally [place]: doing well, nursing well Objective - Latest Vital Signs Latest vital signs: Vital Signs Temp Pulse Resp BP Pulse Ox 07/13/23 07:42 97.8 F 82 16 127/79 97 07/13/23 04:00 98.3 F 65 16 120/67 07/13/23 01:54 98.5 F 78 16 114/68 07/13/23 01:39 58 L 16 112/64 07/13/23 01:24 86 16 132/70 07/13/23 01:09 62 16 132/62 07/13/23 00:54 67 16 124/59 07/13/23 00:39 72 16 123/80 07/13/23 00:24 61 16 117/75 07/13/23 00:09 68 16 133/59 07/12/23 23:54 97.2 F L 65 16 126/74 07/12/23 18:42 98.4 F 80 17 122/77 07/12/23 13:16 98.4 F 80 17 122/77 07/12/23 12:06 98.4 F 80 17 122/77 Intake and Output 07/12/23 07/13/23 07/13/23 22:59 06:59 14:59 Output Total 418 Balance -418 Output: Urine 100 Estimated Blood Loss 200 Output, Quantitative 118 Blood Loss Other: # Voids 1 - Exam Extremities: Present: normal. Absent: tenderness, edema Abdomen: Present: normal appearance, soft. Absent: distention, tenderness Uterus: Present: normal, firm. Absent: tenderness - Labs Labs: Abnormal Lab Results - Last 24 Hours (Table) 07/13/23 Range/Units 01:31 WBC 12.7 H (3.8-10.6) k/uL RBC 3.49 L (3.80-5.40) m/uL Hgb 10.5 L (11.4-16.0) gm/dL Hct 31.4 L (34.0-46.0) % Neutrophils # 10.6 H (1.3-7.7) k/uL Assessment and Plan Assessment: Status post vaginal delivery day #1 (1) 39 weeks gestation of Current Visit: Yes Status: Acute Code(s): Z3A.39 - 39 WEEKS GESTATION OF P REGNANCY SNOMED Code(s): 72443342 (2) Group B Streptococcus carrier, +RV culture, currently Current Visit: Yes Status: Acute Code(s): O99.820 - STREPTOCOCCUS B CARRIER STATE COMPLICATING SNOMED Code(s): 0526911886725 Plan: Continue with care today. Anticipate discharge home tomorrow.
[2023-07-13] MEDS: ACETAMINOPHEN TAB 325 MG TAB PO PRN (11:29)
--- NOTE | 2023-07-14 08:44 | P.DS ---
Providers Date of admission: 07/12/23 11:52 Expected date of discharge: 07/14/23 Attending physician: Marialuisa Turcios Primary care physician: Mraialuisa Turcios - Discharge Diagnosis(es) (1) 39 weeks gestation of Current Visit: Yes Status: Acute (2) Group B Streptococcus carrier, +RV culture, currently Current Visit: Yes Status: Acute Hospital Course: The 22-year-old female 1 para 0 at 39 and one sevenths weeks who presented with spontaneous rupture of membranes. She underwent oxytocin augmentation of labor and then delivered a viable male infant on 07/12/2023 with scores of 8 at 1 minute and 9 at 5 minutes and weight of 8 lbs. 0 oz. Her course has been essentially uncomplicated. Lochia has been decreasing. Pain is been well controlled. She is breast-feeding. Vital signs are stable. Abdomen is soft with fundus firm and nontender. Extremities show negative Homans. Impression is status post vaginal delivery day #2. Plan is to discharge home today. Routine instructions are given. She is advised to follow up with me in the office in approximately 2 weeks for early visit. Since her office will be closing, she does plan to follow-up with Dr. Adams for a 6 week visit. She will call his office today. She is advised to call the office if she has any further questions or concerns prior to her appointment time. Procedures: Spontaneous vaginal delivery of a viable male on 07/12/2023 Patient Condition at Discharge: Stable Plan - Discharge Summary New Discharge Prescriptions: New Ibuprofen [Motrin] 600 mg PO Q6HR PRN #60 tab PRN Reason: Mild Pain (Scale 1 To 3) Continue Vit No.179/Iron/Folic [ Tablet] 1 tab PO ONCE Discharge Medication List Vit No.179/Iron/Folic [ Tablet] 1 tab PO ONCE 07/07/23 [History] Ibuprofen [Motrin] 600 mg PO Q6HR PRN #60 tab 07/14/23 [Rx] Follow up Appointment(s)/Referral(s): Marialuisa Turcios DO [Primary Care Provider] - 2 Weeks Activity/Diet/Wound Care/Special Instructions: Instructions 1. Do not begin any exercise program for 3 weeks. 2. Do not resume sexual relations for 3 weeks or longer if uncomfortable. 3. You may take tub baths or showers at any time. 4. You may use tampons if desired after 3 weeks. 5. Keep the area of episiotomy (stitches) clean and dry. 6. If you are not nursing, wear a good fitting, supportive bra during the day and limit fluid intake for at least 1 week to prevent breast engorgement. 7. Call the office, [phone], within the next week to make appointment for your 6 week checkup if it has not already been made. 8. Report any of the following occurrences to the doctor promptly: a. Heavy, excessive bleeding b. Chills, fever c. Burning or frequency of urination d. Pain or redness and breasts if nursing e. Increasing pain or swelling in episiotomy (stitches). In addition to the above instructions, the following additional should be followed: 1. No heavy lifting or straining (exercising) until after 6 week checkup. 2. Keep abdominal incision clean and dry: You may wear a dressing if more comfortable. 3. Make office appointment for 10 days after going home or as instructed by her doctor. Discharge Disposition: HOME SELF-CARE
[2023-07-14 09:47] VITALS: BP 121/69; PULSE 74; RESP 16; TEMP 97
== END 2023-07-14 11:00 | disposition home or self-care (01) | DRG 560 ==
LOC: FBPOP 11:21 → 4FBP 11:52
PROVIDERS: ADMIT Obstetrics & Gynecology; ATTEND Obstetrics & Gynecology
PROC: 0W8NXZZ Division of Female Perineum, External Approach (ICD-10-PCS; principal; 2023-07-12)
PROC: 10D17Z9 Manual Extraction of Products of Conception, Retained, Via Natural or Artificial Opening (ICD-10-PCS; principal; 2023-07-12)
PROC: 10E0XZZ Delivery of Products of Conception, External Approach (ICD-10-PCS; principal; 2023-07-12)
PROC: 0UQMXZZ Repair Vulva, External Approach (ICD-10-PCS; principal; 2023-07-12)
PROC: 3E0234Z Introduction of Serum, Toxoid and Vaccine into Muscle, Percutaneous Approach (ICD-10-PCS; 2023-07-13)
DX: O99.824 Streptococcus B carrier state complicating childbirth (principal); O26.893 Other specified pregnancy related conditions, third trimester; Z67.11 Type A blood, Rh negative; O76 Abnormality in fetal heart rate and rhythm complicating labor and delivery; O99.344 Other mental disorders complicating childbirth; F32.A Depression, unspecified; O71.82 Other specified trauma to perineum and vulva; O73.1 Retained portions of placenta and membranes, without hemorrhage; F41.9 Anxiety disorder, unspecified; O99.52 Diseases of the respiratory system complicating childbirth; J45.909 Unspecified asthma, uncomplicated; Z87.891 Personal history of nicotine dependence; Z28.310 Unvaccinated for COVID-19; Z3A.39 39 weeks gestation of pregnancy; Z37.0 Single live birth
CPT/HCPCS: 59025; 84112; 85025; 85461; 86850; 86900; 86901; 99213